=== PATIENT | female | born 1990 | race Caucasian/White ===

== ENCOUNTER 2016-05-19 22:34 | Observation (INO) | payer OTHER ==
[2016-05-19] MEDS ORDERED: ADENOSINE 6 MG/2 ML VIAL IVPUSH ONE (22:41)
--- NOTE | 2016-05-19 22:43 | PDOC ---
History of Present Illness - General History Source: Patient Exam Limitations: No Limitations <Amish Smith - Last Filed: 05/19/16 23:45> <Letty Parekh - Last Filed: 05/20/16 02:31> - General Stated Complaint: CHEST PAIN - History of Present Illness Initial Comments: 05/19/16 23:58 The patient is a 25 year old female brought via EMS, A0, with a significant past medical history of right arm cellulitis and asthma, who presents to the emergency department with palpitations, chest pain and headache onset today, fever, nausea, vomit or the past 2 weeks and an inability to urinate for the last couple of days. She notes that she was sitting in bed when the chest pain and palpitations started. She describes her chest pain as a pressure, ranging from mild to moderate, without radiation or modifying factors. She reports dehydration and notes that she recently has not been drinking enough liquids. She states that she has had multiple nosebleeds during this time frame. The patient denies shortness of breath, headache and dizziness. Denies chills, diarrhea and constipation. Denies dysuria, frequency and hematuria. Allergies: None Past surgical history: Left knee arthroscopic sx Social history: No alcohol, tobacco or drug use reported (Amish Smith) Past History <ArammarcusAmish - Last Filed: 05/19/16 23:45> - Past Medical History Anemia: Yes Asthma: No Cancer: No Cardiac Disorders: No CVA: No COPD: No CHF: No Dementia: No Diabetes: No GI Disorders: No Disorders: No HTN: No Hypercholesterolemia: No Liver Disease: No Seizures: No Thyroid Disease: No - Surgical History Orthopedic Surgery: Yes (Left kknee arthroscopic sx) - Reproductive History (#): 1 Para: 1 Spontaneous : 0 - Immunization History Immunization Up to Date: Yes - Psycho/Social/Smoking Cessation Hx Anxiety: No Suicidal Ideation: No Smoking Status: No Smoking History: Never smoked Have you smoked in the past 12 months: No Number of Cigarettes Smoked Daily: 0 Hx Alcohol Use: No Drug/Substance Use Hx: No Substance Use Type: None Hx Substance Use Treatment: No <Letty Parekh - Last Filed: 05/20/16 02:31> - Past Medical History Allergies/Adverse Reactions: Allergies Allergy/AdvReac Type Severity Reaction Status Date / Time No Known Allergies Allergy Verified 01/03/16 08:39 Home Medications: Ambulatory Orders Diltiazem Cd [Cardizem Cd -] 120 mg PO DAILY #14 cap.cd.24h 05/20/16 Cardiac Specific PMH - Complaint Specific PMHX Pacemaker: No <Letty Parekh - Last Filed: 05/20/16 02:31> Review of Systems - Review of Systems Able to Perform ROS?: Yes <Amish Smith - Last Filed: 05/19/16 23:45> <Letty Parekh - Last Filed: 05/20/16 02:31> - Review of Systems Comments:: 05/19/16 23:59 GENERAL/CONSTITUTIONAL: +Fever. No chills. No weakness. HEAD, EYES, EARS, NOSE AND THROAT: +Nose bleed. No change in vision. No ear pain or discharge. No sore throat. CARDIOVASCULAR: +Chest pain and palpitations. No shortness of breath RESPIRATORY: No cough, wheezing, or hemoptysis. GASTROINTESTINAL: +Nausea and vomiting. No diarrhea or constipation. GENITOURINARY: No dysuria, frequency, or change in urination. MUSCULOSKELETAL: No joint or muscle swelling or pain. No neck or back pain. SKIN: No rash NEUROLOGIC: +Headache. No vertigo, loss of consciousness, or change in strength/ sensation. ENDOCRINE: No increased thirst. No abnormal weight change HEMATOLOGIC/LYMPHATIC: No anemia, easy bleeding, or history of blood clots. ALLERGIC/IMMUNOLOGIC: No hives or skin allergy. (Amish Smith) *Physical Exam <Amish Smith - Last Filed: 05/19/16 23:45> <Letty Parekh - Last Filed: 05/20/16 02:31> - Vital Signs Last Vital Signs Temp Pulse Resp BP Pulse Ox 98.5 F 110 H 22 112/88 100 05/19/16 23:43 05/19/16 23:43 05/19/16 23:43 05/19/16 23:43 05/19/16 23:43 - Physical Exam Comments: 05/20/16 00:00 GENERAL: Awake, alert, and fully oriented, in no acute distress HEAD: No signs of trauma, normocephalic, atraumatic EYES: PERRLA, EOMI, sclera anicteric, conjunctiva clear ENT: Auricles normal inspection, hearing grossly normal, nares patent, oropharynx clear without exudates. Dry Mucosa. NECK: Normal ROM, supple, no lymphadenopathy, JVD, or masses LUNGS: No distress, speaks full sentences, clear to auscultation bilaterally HEART: Regular rate and rhythm, normal S1 and S2, no murmurs, rubs or gallops, peripheral pulses normal and equal bilaterally. ABDOMEN: Soft, nontender, normoactive bowel sounds. No guarding, no rebound. No masses EXTREMITIES: Normal inspection, Normal range of motion, no edema. No clubbing or cyanosis. NEUROLOGICAL: Cranial nerves II through XII grossly intact. Normal speech, normal gait, no focal sensorimotor deficits SKIN: Warm, Dry, normal turgor, no rashes or lesions noted. (Amish Smith ) ED Treatment Course - LABORATORY CBC & Chemistry Diagram: 05/19/16 23:00 05/19/16 23:00 <Amish Smith - Last Filed: 05/19/16 23:45> - LABORATORY CBC & Chemistry Diagram: 05/19/16 23:00 05/19/16 23:00 <Letty Parekh - Last Filed: 05/20/16 02:31> - ADDITIONAL ORDERS Additional order review: Laboratory Results 05/20/16 05/19/16 05/19/16 01:15 23:10 23:00 INR D-Dimer < 200 Sodium Potassium Chloride Carbon Dioxide Anion Gap BUN Creatinine Creat Clearance w eGFR Random Glucose Calcium Magnesium Total Bilirubin AST ALT Alkaline Phosphatase Creatine Kinase CK-MB (CK-2) Troponin I Total Protein Albumin Serum , Qual Negative Urine Color Colorless Urine Appearance Clear Urine pH 6.0 Ur Specific [place] 1.002 Urine Protein Negative Urine Glucose (UA) Negative Urine Ketones 1+ H Urine Blood 2+ H Urine Nitrite Negative Urine Bilirubin Negative Urine Urobilinogen Negative Ur Leukocyte Esterase Negative Urine RBC <1 Urine WBC <1 Ur Epithelial Cells Rare Urine Bacteria Rare 05/19/16 05/19/16 23:00 23:00 INR 1.24 H D-Dimer Sodium 141 Potassium 3.2 L D Chloride 102 Carbon Dioxide 26 Anion Gap 13 BUN 8 Creatinine 0.7 Creat Clearance w eGFR > 60 Random Glucose 78 Calcium 9.2 Magnesium 1.9 Total Bilirubin 0.7 D AST 21 D ALT 20 Alkaline Phosphatase 48 Creatine Kinase 153 CK-MB (CK-2) 1.753 Troponin I 0.03 Total Protein 7.4 Albumin 4.1 Serum , Qual Urine Color Urine Appearance Urine pH Ur Specific [place] Urine Protein Urine Glucose (UA) Urine Ketones Urine Blood Urine Nitrite Urine Bilirubin Urine Urobilinogen Ur Leukocyte Esterase Urine RBC Urine WBC Ur Epithelial Cells Urine Bacteria 05/20/16 00:19 Influenza Types A,B Antigen (GRACIA) - Final Nasopharyngeal Swab - Final 05/19/16 23:00 RBC 4.77 MCV 81.8 MCHC 34.2 RDW 12.7 MPV 9.5 Neutrophils % 79.0 Lymphocytes % 11.3 D Monocytes % 8.0 Eosinophils % 0.9 Basophils % 0.8 D - RADIOLOGY Radiology Studies Ordered: Category Date Time Status CHEST PA & LAT [RAD] Stat Radiology 05/20/16 00:30 Taken - Medications Given in the ED: ED Medications Discontinued Medications Generic Name Dose Route Start Last Admin Trade Name Freq PRN Reason Stop Dose Admin Acetaminophen 975 mg 05/19/16 23:30 05/19/16 23:49 Tylenol - PO 05/19/16 23:31 975 mg ONCE ONE Administration Sodium Chloride 1,000 mls @ 1,000 mls/hr 05/19/16 23:17 05/19/16 23:21 Normal Saline - IV 05/20/16 00:16 1,000 mls/hr ASDIR STA Administration Sodium Chloride 1,000 mls @ 1,000 mls/hr 05/20/16 00:16 05/20/16 00:21 Normal Saline - IV 05/20/16 01:15 1,000 mls/hr ASDIR STA Administration Magnesium Sulfate 2 gm 05/20/16 01:01 05/20/16 01:34 Magnesium Sulfate IVPB 05/20/16 01:02 2 gm ONCE ONE Administration Ondansetron HCl 4 mg 05/19/16 23:18 05/19/16 23:23 Zofran Injection IVPUSH 05/19/16 23:19 4 mg ONCE ONE Administration Potassium Chloride 40 meq 05/20/16 00:02 05/20/16 00:28 K-Dur - PO 05/20/16 00:03 40 meq ONCE ONE Administration Medical Decision Making <Amish Smith - Last Filed: 05/19/16 23:45> <Letty Parekh - Last Filed: 05/20/16 02:31> - Medical Decision Making 05/20/16 01:15 25 yo female was resting tonight in bed when she suddenly felt her heart start to race -=she states she has had a viral like illness for past 10 days with nasal congestion,nausea ,fever and vomiting and generally not feeling well PMH 911 was called and she was found to be in SVT and she received adenosine and converted to sinus rhythm -elg in ER was tachy@ 115 INFLUENZA A and B NEGATIVE -no leukocytosis -cardiac enzyme is negative -d dimer is negative -negative test cxr napd -found to have k=3.1 and received potassium supplementation case dicussed w cardiology, Dr Moris Velázquez and he recommended that she be started on cardizem cd 120mg and be seen in the office this week 05/20/16 02:19 (Letty Parekh) *DC/Admit/Observation/Transfer <Amish Smith - Last Filed: 05/19/16 23:45> <Letty Parekh - Last Filed: 05/20/16 02:31> Diagnosis at time of Disposition: SVT (supraventricular tachycardia), Nasal congestion - Discharge Dispostion Condition at time of disposition: Stable - Prescriptions Prescriptions: Diltiazem Cd [Cardizem Cd -] 120 mg PO DAILY #14 cap.cd.24h - Referrals Referrals: Gloria Ren MD [Primary Care Provider] - Moris eVlázquez MD [Staff Physician] - - Patient Instructions Printed Discharge Instructions: DI for Paroxysmal Supraventricular Tachycardia , DI for Atypical Chest Pain Additional Instructions: PLEASE FOLLOW UP WITH CARDIOLOGY THIS WEEK DIAGNOSTIC ASSISTANT [facility] RETURN TO THE EMERGENCY DEPARTMENT FOR ANY WORSENING SYMPTOMS - Attestations Scribe Attestion: 05/20/16 00:00 Documentation prepared by mAish Smith, acting as medical certification specialist for Letty Parekh MD. (Amish Smith)
[2016-05-19 22:50] VITALS: BMI 24.4
[2016-05-19 23:14] LABS: BASOPHIL 0.8 % (0-2.0); EOSINOPHIL 0.9 % (0-4.5); MCHC 34.2 g/dl (32.0-36.0); MEAN CELL VOLUME 81.8 fl (80-96); MEAN PLT VOLUME 9.5 fl (7.5-11.1); PLATELET COUNT 264 K/MM3 (134-434); RDW 12.7 % (11.6-15.6); WHITE BLOOD COUNT 10.3 K/mm3 (4.0-10.0)
[2016-05-19] MEDS ORDERED: SODIUM CHLORIDE 1,000 ML IV STA (23:17)
[2016-05-19] MEDS ORDERED: ONDANSETRON 4 MG/2 ML VIAL IVPUSH ONE (23:18)
[2016-05-19] MEDS ORDERED: ONDANSETRON 4 MG/2 ML VIAL ONE (23:23)
[2016-05-19] MEDS ORDERED: ACETAMINOPHEN 500 MG TABLET (FP) PO ONE (23:30)
[2016-05-19 23:38] LABS: INR 1.24 (0.82-1.09); PROTHROMBIN TIME (PATIENT) 13.7 SEC (9.98-11.88)
[2016-05-19] MEDS ORDERED: ACETAMINOPHEN 325 MG TABLET (FP) ONE (23:47)
[2016-05-19 23:50] LABS: ALBUMIN 4.1 g/dl (3.4-5.0); ALK PHOS 48 U/L (45-117); ANION GAP 13 (8-16); BILIRUBIN,TOTAL 0.7 mg/dL (0.2-1.0); CALCIUM 9.2 mg/dL (8.5-10.1); CO2 26 mmol/L (21-32); CREATININE 0.7 mg/dL (0.55-1.02); GLUCOSE,RANDOM 78 mg/dL (74-106); MAGNESIUM 1.9 mg/dL (1.8-2.4); SGOT/AST 21 U/L (15-37); SGPT/ALT 20 U/L (12-78); TOT PROT 7.4 g/dl (6.4-8.2)
[2016-05-19 23:52] LABS: TROPONIN I 0.03 ng/ml (0.00-0.05)
[2016-05-20] MEDS ORDERED: POTASSIUM CHLORIDE TABS 20 MEQ TABLET.ER (FP) PO ONE ×2 (00:02→04:34)
[2016-05-20] MEDS ORDERED: ONDANSETRON 4 MG/2 ML VIAL ONE (00:09)
[2016-05-20] MEDS ORDERED: SODIUM CHLORIDE 1,000 ML IV STA (00:16)
[2016-05-20] MEDS ORDERED: POTASSIUM CHLORIDE 40 MEQ/30 ML UNIT DOSE CUP ONE (00:22)
[2016-05-20] MEDS ORDERED: MAGNESIUM SULF 50% (8.12 MEQ/2 ML-1 GM VIAL) IVPB ONE (01:01)
[2016-05-20] MEDS ORDERED: MAGNESIUM SULF 50% (8.12 MEQ/2 ML-1 GM VIAL) ONE (01:19)
[2016-05-20 01:20] LABS: URINE APPEARANCE CLEAR; URINE BILIRUBIN NEGATIVE (NEGATIVE); URINE COLOR COLORLESS; URINE GLUCOSE (UA) NEGATIVE (NEGATIVE); URINE KETONE 1+ (NEGATIVE); URINE LEUK ESTERASE NEGATIVE (NEGATIVE); URINE NITRITE NEGATIVE (NEGATIVE); URINE PROTEIN NEGATIVE (NEGATIVE); URINE UROBILINOGEN NEGATIVE E.U./dl (0.2-1.0)
[2016-05-20 01:21] LABS: URINE BLOOD 2+ (NEGATIVE)
[2016-05-20 01:22] LABS: URINE BACTERIA RARE /hpf (NONE SEEN); URINE RBC <1 /hpf (0-3); URINE WBC <1 /hpf (3-5)
[2016-05-20] MEDS ORDERED: ASPIRIN 325 MG TABLET PO ONE (02:23)
[2016-05-20] MEDS ORDERED: ASPIRIN 81 MG CHEWABLE TABLETS PO ONE (02:29)
[2016-05-20] MEDS ORDERED: ACETAMINOPHEN 1000 MG/100 ML VIAL (NON FORMULARY) IVPB ONE ×2 (02:29→20:50)
[2016-05-20] MEDS ORDERED: ASPIRIN 81 MG CHEWABLE TABLETS ONE (02:31)
[2016-05-20] MEDS ORDERED: ACETAMINOPHEN INJECTION 100 ML IVPB ONE (02:35)
[2016-05-20 03:34] LABS: TROPONIN I 0.11 ng/ml (0.00-0.05)
--- NOTE | 2016-05-20 03:45 | PN ---
<Suraj Sosa - Last Filed: 05/20/16 03:45> Teaching Attending Note Name of Resident: Riley Lea ATTENDING PHYSICIAN STATEMENT I saw and evaluated the patient. I reviewed the resident's note and discussed the case with the resident. I agree with the resident's findings and plan as documented. SUBJECTIVE: OBJECTIVE: ASSESSMENT AND PLAN: <SantosLito - Last Filed: 05/20/16 04:46> Teaching Attending Note ATTENDING PHYSICIAN STATEMENT I saw and evaluated the patient. I reviewed the resident's note and discussed the case with the resident. I agree with the resident's findings and plan as documented. SUBJECTIVE: 25 year old female with no significant past medical history who presented to the emergency department, via EMS, with palpitations and chest pain onset late yesterday, fever, nausea, vomit for the past 2 weeks and an inability to urinate for the last couple of days. She reported that she had just gotten out of the shower when her chest pain and palpitations started. She described her chest pain as a pressure located substernally, non-radiation, and constant in nature. The patient reported that her fever has fluctuated but was Tmax 103.6 yesterday. Patients heart rate upon EMS arrival was found to be 180-200 as SVT noted on rhythm strip (strip not in ED) was given adenosine 6 en route to ED. Upon arrival patient was on sinus tachycardia rhythm. The patient denied shortness of breath, headache and dizziness. Denied chills, diarrhea and constipation. Denied dysuria, frequency and hematuria. Denied any sick contacts. OBJECTIVE: Vital Signs: Last Vital Signs Temp Pulse Resp BP Pulse Ox 98.5 F 110 H 22 112/88 100 05/19/16 23:43 05/19/16 23:43 05/19/16 23:43 05/19/16 23:43 05/19/16 23:43 Physical Exam: GEN: NAD HEENT: NCAT, PERRL CARD: RRR, S1 S2 RESP: CTAB ABD: NT, BWS x4 EXT: - CCE Labs: CBCD WBC 10.3 K/mm3 (4.0-10.0) H 05/19/16 23:00 RBC 4.77 M/mm3 (3.60-5.2) 05/19/16 23:00 Hgb 13.3 GM/dL (10.7-15.3) 05/19/16 23:00 Hct 39.0 % (32.4-45.2) 05/19/16 23:00 MCV 81.8 fl (80-96) 05/19/16 23:00 MCHC 34.2 g/dl (32.0-36.0) 05/19/16 23:00 RDW 12.7 % (11.6-15.6) 05/19/16 23:00 Plt Count 264 K/MM3 (134-434) D 05/19/16 23:00 MPV 9.5 fl (7.5-11.1) 05/19/16 23:00 CMP Sodium 141 mmol/L (136-145) 05/19/16:00 Potassium 3.2 mmol/L (3.5-5.1) L D 05/19/16 23:00 Chloride 102 mmol/L (98-107) 05/19/16 23:00 Carbon Dioxide 26 mmol/L (21-32) 05/19/16 23:00 Anion Gap 13 (8-16) 05/19/16 23:00 BUN 8 mg/dL (7-18) 05/19/16 23:00 Creatinine 0.7 mg/dL (0.55-1.02) 05/19/16 23:00 Creat Clearance w eGFR > 60 (>60) 05/19/16 23:00 Calcium 9.2 mg/dL (8.5-10.1) 05/19/16 23:00 Total Bilirubin 0.7 mg/dL (0.2-1.0) D 05/19/16 23:00 AST 21 U/L (15-37) D 05/19/16 23:00 ALT 20 U/L (12-78) 05/19/16 23:00 Alkaline Phosphatase 48 U/L (45-117) 05/19/16 23:00 Total Protein 7.4 g/dl (6.4-8.2) 05/19/16 23:00 Albumin 4.1 g/dl (3.4-5.0) 05/19/16 23:00 Imaging: CXR- No acute process. ECG- Sinus tachycardia at 115. QTC normal. ASSESSMENT AND PLAN: Patient is a 25 year old female with no significant past medical history who presents with chest pain was found to be in SVT with positive troponin. 1 Chest Pain- most likely due to SVT -DDX-most likely due to SVT/myocarditis -Trend troponins -Atypical less likely ACS -Check lipid panel A1C 2. SVT -Cardiology consult -Continue cardizem - Repeat electrolytes -Check potassium and magnesium -Keep potassium >4 and magnesium >2 -ECHO complete 3. Increased troponin- most likely due to SVT -Trend troponins -s/p ASA in ED Admit to observation tele. Documentation prepared by Lito Graham, acting as medical lead for Dr. Ian MD.
--- NOTE | 2016-05-20 03:48 | PDOC ---
*Physical Exam - Vital Signs Last Vital Signs Temp Pulse Resp BP Pulse Ox 98.5 F 110 H 22 112/88 100 05/19/16 23:43 05/19/16 23:43 05/19/16 23:43 05/19/16 23:43 05/19/16 23:43 ED Treatment Course - LABORATORY CBC & Chemistry Diagram: 05/19/16 23:00 05/19/16 23:00 - ADDITIONAL ORDERS Additional order review: Laboratory Results 05/20/16 05/20/16 05/19/16 03:00 01:15 23:10 INR D-Dimer Sodium Potassium Chloride Carbon Dioxide Anion Gap BUN Creatinine Creat Clearance w eGFR Random Glucose Calcium Magnesium Total Bilirubin AST ALT Alkaline Phosphatase Creatine Kinase 109 CK-MB (CK-2) Troponin I 0.11 H Total Protein Albumin TSH Serum , Qual Negative Urine Color Colorless Urine Appearance Clear Urine pH 6.0 Ur Specific [place] 1.002 Urine Protein Negative Urine Glucose (UA) Negative Urine Ketones 1+ H Urine Blood 2+ H Urine Nitrite Negative Urine Bilirubin Negative Urine Urobilinogen Negative Ur Leukocyte Esterase Negative Urine RBC <1 Urine WBC <1 Ur Epithelial Cells Rare Urine Bacteria Rare 05/19/16 05/19/16 05/19/16 23:00 23:00 23:00 INR 1.24 H D-Dimer < 200 Sodium 141 Potassium 3.2 L D Chloride 102 Carbon Dioxide 26 Anion Gap 13 BUN 8 Creatinine 0.7 Creat Clearance w eGFR > 60 Random Glucose 78 Calcium 9.2 Magnesium 1.9 Total Bilirubin 0.7 D AST 21 D ALT 20 Alkaline Phosphatase 48 Creatine Kinase 153 CK-MB (CK-2) 1.753 Troponin I 0.03 Total Protein 7.4 Albumin 4.1 TSH Serum , Qual Urine Color Urine Appearance Urine pH Ur Specific [place] Urine Protein Urine Glucose (UA) Urine Ketones Urine Blood Urine Nitrite Urine Bilirubin Urine Urobilinogen Ur Leukocyte Esterase Urine RBC Urine WBC Ur Epithelial Cells Urine Bacteria 05/19/16 22:30 INR D-Dimer Sodium Potassium Chloride Carbon Dioxide Anion Gap BUN Creatinine Creat Clearance w eGFR Random Glucose Calcium Magnesium Total Bilirubin AST ALT Alkaline Phosphatase Creatine Kinase CK-MB (CK-2) Troponin I Total Protein Albumin TSH 0.36 Serum , Qual Urine Color Urine Appearance Urine pH Ur Specific [place] Urine Protein Urine Glucose (UA) Urine Ketones Urine Blood Urine Nitrite Urine Bilirubin Urine Urobilinogen Ur Leukocyte Esterase Urine RBC Urine WBC Ur Epithelial Cells Urine Bacteria 05/20/16 00:19 Influenza Types A,B Antigen (GRACIA) - Final Nasopharyngeal Swab - Final 05/19/16 23:00 RBC 4.77 MCV 81.8 MCHC 34.2 RDW 12.7 MPV 9.5 Neutrophils % 79.0 Lymphocytes % 11.3 D Monocytes % 8.0 Eosinophils % 0.9 Basophils % 0.8 D - Medications Given in the ED: ED Medications Discontinued Medications Generic Name Dose Route Start Last Admin Trade Name Fredonal PRN Reason Stop Dose Admin Acetaminophen 975 mg 05/19/16 23:30 05/19/16 23:49 Tylenol - PO 05/19/16 23:31 975 mg ONCE ONE Administration Acetaminophen 1,000 mg 05/20/16 02:29 05/20/16 03:00 Ofirmev Injection - IVPB 05/20/16 02:30 1,000 mg ONCE ONE Administration Aspirin 650 mg 05/20/16 02:23 05/20/16 02:35 Asa - PO 05/20/16 02:24 Not Given ONCE ONE Aspirin 162 mg 05/20/16 02:29 05/20/16 02:36 Asa - PO 05/20/16 02:30 162 mg ONCE ONE Administration Diltiazem HCl 120 mg 05/20/16 02:18 05/20/16 02:36 Cardizem Cd - PO 05/20/16 02:19 120 mg ONCE ONE Administration Sodium Chloride 1,000 mls @ 1,000 mls/hr 05/19/16 23:17 05/19/16 23:21 Normal Saline - IV 05/20/16 00:16 1,000 mls/hr ASDIR STA Administration Sodium Chloride 1,000 mls @ 1,000 mls/hr 05/20/16 00:16 05/20/16 00:21 Normal Saline - IV 05/20/16 01:15 1,000 mls/hr ASDIR STA Administration Magnesium Sulfate 2 gm 05/20/16 01:01 05/20/16 01:34 Magnesium Sulfate IVPB 05/20/16 01:02 2 gm ONCE ONE Administration Ondansetron HCl 4 mg 05/19/16 23:18 05/19/16 23:23 Zofran Injection IVPUSH 05/19/16 23:19 4 mg ONCE ONE Administration Potassium Chloride 40 meq 05/20/16 00:02 05/20/16 00:28 K-Dur - PO 05/20/16 00:03 40 meq ONCE ONE Administration Progress Note - Progress Note Progress Note: svt w/ + trops no hx admitto tely for obs and card consult *DC/Admit/Observation/Transfer Diagnosis at time of Disposition: SVT (supraventricular tachycardia), Nasal congestion - Discharge Dispostion Condition at time of disposition: Stable Admit: Yes - Prescriptions Prescriptions: Diltiazem Cd [Cardizem Cd -] 120 mg PO DAILY #14 cap.cd.24h - Referrals Referrals: Moris Velázquez MD [Staff Physician] - Gloria Ren MD [Primary Care Provider] - - Patient Instructions Printed Discharge Instructions: DI for Atypical Chest Pain, DI for Paroxysmal Supraventricular Tachycardia Additional Instructions: PLEASE FOLLOW UP WITH CARDIOLOGY THIS WEEK COMMERCIAL LOAN OFFICER YOUR PRESCRIPTION AT [facility] RETURN TO THE EMERGENCY DEPARTMENT FOR ANY WORSENING SYMPTOMS - Post Discharge Activity
--- NOTE | 2016-05-20 03:54 | HP ---
CHIEF COMPLAINT: chest pain PCP: Gloria Ren MD HISTORY OF PRESENT ILLNESS: 25 yo F with no significant past medical history presents to ED via EMS for palpitations and chest pain. She describes a constant 10/10 non-radiating substernal pressure like pain that started after she took a shower. She states that it started with palpitations and then progressed to pain. She tried drinking water and lying down but pain persisted for approx. 25 min until EMS arrived. Denies aggravating of alleviating factors. Pain and palpitations were accompanied by shaking and SOB. She mentions that she has been sick with flu- like symptoms for about a week with fevers ,vomiting, nose bleeds and poor oral intake. She mentions dehydration and decreased urine output. Denies similar events in past. She has been hospitalized in past for upper ext. cellulitis ( ). Denies SOB, recent travel, or sick contacts. ER course was notable for: (1) EKG initially showed SVT- recieved adenosine 6mg by EMS and converted to sinus,in ED was tach@115 and given cardizem 120mg PO (2) Elevated troponins- first set WNL , second set showed mild elevation 0.11 (3) D-dimer(-) and test (-) (4) Hypokalemia- given PO K+ (5) Influenz A-B (-) Recent Travel: Denies PAST MEDICAL HISTORY: Right Arm Cellulits. PAST SURGICAL HISTORY: Left knee arthroscopic sx Social History: Smoking: no Alcohol: denies Drugs: denies Family History: No history of cardiac disease. Allergies No Known Allergies Allergy (Verified 01/03/16 08:39) HOME MEDICATIONS: Home Medications Medication Instructions Recorded Diltiazem Cd [Cardizem Cd -] 120 mg PO DAILY #14 cap.cd.24h 05/20/16 REVIEW OF SYSTEMS CONSTITUTIONAL: (+)fever Absent: , chills, diaphoresis, generalized weakness, malaise, loss of appetite , weight change HEENT: +nose bleeds. Absent: rhinorrhea, nasal congestion, throat pain, throat swelling, difficulty swallowing, mouth swelling, ear pain, eye pain, visual changes CARDIOVASCULAR: (+)chest pain,palpitations, Absent: , syncope, irregular heart rate, lightheadedness, peripheral edema RESPIRATORY: Absent: cough, shortness of breath, dyspnea with exertion, orthopnea, wheezing, stridor, hemoptysis GASTROINTESTINAL:(+)nausea, vomiting, Absent: abdominal pain, abdominal distension, diarrhea, constipation, melena, hematochezia GENITOURINARY: Absent: dysuria, frequency, urgency, hesitancy, hematuria, flank pain, genital pain MUSCULOSKELETAL: Absent: myalgia, arthralgia, joint swelling, back pain, neck pain SKIN: Absent: rash, itching, pallor HEMATOLOGIC/IMMUNOLOGIC: Absent: easy bleeding, easy bruising, lymphadenopathy, frequent infections ENDOCRINE: Absent: unexplained weight gain, unexplained weight loss, heat intolerance, cold intolerance NEUROLOGIC: (+)headache Absent: , focal weakness or paresthesias, dizziness, unsteady gait, seizure, mental status changes, bladder or bowel incontinence PSYCHIATRIC: Absent: anxiety, depression, suicidal or homicidal ideation, hallucinations. PHYSICAL EXAMINATION Vital Signs - 24 hr 05/19/16 05/19/16 22:45 23:43 Temperature 97.8 F 98.5 F Pulse Rate 119 H Pulse Rate [ 110 H Right Radial] Respiratory 22 22 Rate Blood Pressure 106/81 Blood Pressure 112/88 [Right Arm] O2 Sat by Pulse 97 100 Oximetry (%) GENERAL: Awake, alert, and fully oriented, in mild distress. HEAD: Normal with no signs of trauma. EYES: Pupils equal, round and reactive to light, extraocular movements intact, sclera anicteric, conjunctiva clear. No lid lag. EARS, NOSE, THROAT: Ears normal, nares patent, oropharynx clear without exudates. dry mucous membranes. NECK: Normal range of motion, supple without lymphadenopathy, JVD, or masses. LUNGS: Breath sounds equal, clear to auscultation bilaterally. No wheezes, and no crackles. No accessory muscle use. HEART: Regular rate and rhythm, normal S1 and S2 without murmur, rub or gallop. ABDOMEN: Soft, nontender, not distended, normoactive bowel sounds, no guarding, no rebound, no masses. No hepatomegaly or splenomegaly. MUSCULOSKELETAL: Normal range of motion at all joints. No bony deformities or tenderness. UPPER EXTREMITIES: 2+ pulses, warm, well-perfused. No cyanosis. No clubbing. No peripheral edema. LOWER EXTREMITIES: 2+ pulses, warm, well-perfused. No calf tenderness. No peripheral edema. NEUROLOGICAL: Cranial nerves II-XII intact. Normal speech. gait not observed. PSYCHIATRIC: Cooperative. Good eye contact. Appropriate mood and affect. SKIN: Warm, dry, normal turgor, no rashes or lesions noted. Laboratory Results - last 24 hr 05/19/16 05/19/16 05/19/16 22:30 23:00 23:00 WBC 10.3 H RBC 4.77 Hgb 13.3 Hct 39.0 MCV 81.8 MCHC 34.2 RDW 12.7 Plt Count 264 D MPV 9.5 Neutrophils % 79.0 Lymphocytes % 11.3 D Monocytes % 8.0 Eosinophils % 0.9 Basophils % 0.8 D INR 1.24 H D-Dimer Sodium Potassium Chloride Carbon Dioxide Anion Gap BUN Creatinine Creat Clearance w eGFR Random Glucose Calcium Magnesium Total Bilirubin AST ALT Alkaline Phosphatase Creatine Kinase CK-MB (CK-2) Troponin I Total Protein Albumin TSH 0.36 Serum , Qual Urine Color Urine Appearance Urine pH Ur Specific [place] Urine Protein Urine Glucose (UA) Urine Ketones Urine Blood Urine Nitrite Urine Bilirubin Urine Urobilinogen Ur Leukocyte Esterase Urine RBC Urine WBC Ur Epithelial Cells Urine Bacteria 05/19/16 05/19/16 05/19/16 23:00 23:00 23:10 WBC RBC Hgb Hct MCV MCHC RDW Plt Count MPV Neutrophils % Lymphocytes % Monocytes % Eosinophils % Basophils % INR D-Dimer < 200 Sodium 141 Potassium 3.2 L D Chloride 102 Carbon Dioxide 26 Anion Gap 13 BUN 8 Creatinine 0.7 Creat Clearance w eGFR > 60 Random Glucose 78 Calcium 9.2 Magnesium 1.9 Total Bilirubin 0.7 D AST 21 D ALT 20 Alkaline Phosphatase 48 Creatine Kinase 153 CK-MB (CK-2) 1.753 Troponin I 0.03 Total Protein 7.4 Albumin 4.1 TSH Serum , Qual Negative Urine Color Urine Appearance Urine pH Ur Specific [place] Urine Protein Urine Glucose (UA) Urine Ketones Urine Blood Urine Nitrite Urine Bilirubin Urine Urobilinogen Ur Leukocyte Esterase Urine RBC Urine WBC Ur Epithelial Cells Urine Bacteria 05/20/16 05/20/16 01:15 03:00 WBC RBC Hgb Hct MCV MCHC RDW Plt Count MPV Neutrophils % Lymphocytes % Monocytes % Eosinophils % Basophils % INR D-Dimer Sodium Potassium Chloride Carbon Dioxide Anion Gap BUN Creatinine Creat Clearance w eGFR Random Glucose Calcium Magnesium Total Bilirubin AST ALT Alkaline Phosphatase Creatine Kinase 109 CK-MB (CK-2) Troponin I 0.11 H Total Protein Albumin TSH Serum , Qual Urine Color Colorless Urine Appearance Clear Urine pH 6.0 Ur Specific [place] 1.002 Urine Protein Negative Urine Glucose (UA) Negative Urine Ketones 1+ H Urine Blood 2+ H Urine Nitrite Negative Urine Bilirubin Negative Urine Urobilinogen Negative Ur Leukocyte Esterase Negative Urine RBC <1 Urine WBC <1 Ur Epithelial Cells Rare Urine Bacteria Rare Imaging: CXR- No acute process. ECG- Sinus tachycardia at 115. QTC normal. ASSESSMENT/PLAN: 25 yo F with no sign. PMHx placed on tele obs for chest pain and SVT. Problem List - Problem (1) Chest pain Assessment/Plan: * most like 2/2 SVT vs. myocarditis(given recent viral illness) * trend troponin's * HEART score 1 * ordered Lipid panel and A1C (2) SVT (supraventricular tachycardia) Assessment/Plan: * Cardiology consulted Dr. Velázquez * continuous cardiac cath lab manager * Continue cardizem 120mg PO * repeat EKG in AM * Repeat CMP in AM * maintain potassium >4 and magnesium >2 * Echo pending (3) Elevated troponin I level Assessment/Plan: * ASA given in ED * trend trops with AM labs. (4) Hypokalemia Assessment/Plan: * replete with PO potassium * repeat labs in AM Visit type - Emergency Visit Emergency Visit: Yes Care time: The patient presented to the Emergency Department on the above date and was hospitalized for further evaluation of their emergent condition. - New Patient This patient is new to me today: Yes Date on this admission: 05/20/16 - Critical Care Critical Care patient: No Heart Score/ECG Review - History History: Slightly suspicious - Electrocardiogram EKG: Normal (sinus tach) - Age Age: </= 45 - Risk Factors Based on the list above the patient has:: No risk factors known - Troponin Troponin: 1-3x normal limit - Score Heart Score - Total: 1
[2016-05-20] MEDS ORDERED: IBUPROFEN 600 MG TABLET (FP) PO PRN (04:26)
[2016-05-20] MEDS ORDERED: ONDANSETRON 4 MG/2 ML VIAL IVPB PRN (04:26)
[2016-05-20] MEDS: SODIUM CHLORIDE 1,000 ML IV SCH (06:05)
[2016-05-20 08:17] LABS: BASOPHIL 0.6 % (0-2.0); EOSINOPHIL 1.3 % (0-4.5); MCH 28.9 pg (25.7-33.7); MCHC 34.8 g/dl (32.0-36.0); MEAN CELL VOLUME 83.1 fl (80-96); PLATELET COUNT 189 K/MM3 (134-434); RDW 12.5 % (11.6-15.6); WHITE BLOOD COUNT 6.2 K/mm3 (4.0-10.0)
--- NOTE | 2016-05-20 08:49 | PN ---
Physical Exam: SUBJECTIVE: Patient seen and examined c/o nausea, vomiting, sinus congestion, poor po intake for past 3 weeks. vomiting at times has some scant blood missed with mucus, is not related to type of food or meal time. also c/o chest pain that is substernal, crushing in character, nonradiating, 9.5 /10, continuous, does not change with position and is not worse with deep inspiration. also c/o having difficulty urinating for the past 3 days, denies seeing blood in urine. OBJECTIVE: Vital Signs Period Temp Pulse Resp BP Sys/Teran Pulse Ox Last 24 Hr 97.7 F-98.2 F 76-92 20-20 102-113/76-82 96-100 GENERAL: The patient is awake, alert, and fully oriented, in no acute distress. HEAD: Normal with no signs of trauma. ttp b/l temporal areas. maxillary and frontal sinus tenderness. EYES: PERRL, extraocular movements intact, sclera anicteric, conjunctiva clear. No ptosis. ENT: Ears normal, nares patent, oropharynx clear without exudates or erythema, moist mucous membranes. CHEST: ttp over mid sternum NECK: Trachea midline, full range of motion, supple. LUNGS: Breath sounds equal, clear to auscultation bilaterally, no wheezes, no crackles, no accessory muscle use. HEART: regular rate and rhythm, S1, S2 without murmur, rub or gallop. ABDOMEN: Soft, mild tenderness in RUQ, nondistended, normoactive bowel sounds, no guarding, no rebound, negative for: psoas's, rovsing's, obturator sign, murphys. EXTREMITIES: 2+ pulses, warm, well-perfused, no edema. NEUROLOGICAL: Cranial nerves II through XII grossly intact. Normal speech PSYCH: Normal mood, normal affect. SKIN: Warm, dry, normal turgor, no rashes or lesions noted Laboratory Results - last 24 hr 05/20/16 05/20/16 05:45 05:45 WBC 6.2 D RBC 3.75 D Hgb 10.8 D Hct 31.1 L D MCV 83.1 MCHC 34.8 RDW 12.5 Plt Count 189 D MPV 10.0 Neutrophils % 63.0 D Lymphocytes % 25.8 D Monocytes % 9.3 Eosinophils % 1.3 Basophils % 0.6 Triglycerides Cancelled Cholesterol Cancelled Total LDL Cholesterol Cancelled HDL Cholesterol Cancelled Active Medications Generic Name Dose Route Start Last Admin Trade Name Benny PRN Reason Stop Dose Admin Sodium Chloride 1,000 mls @ 100 mls/hr 05/20/16 04:30 05/20/16 06:05 Normal Saline - IV 100 mls/hr ASDIR JENNIFER Administration Ondansetron HCl 4 mg 05/20/16 04:26 Zofran Injection IVPB Q6H PRN NAUSEA ASSESSMENT/PLAN: 25 year old woman who presents with atypical chest pain was found to have sinus tachycardia in ED, report of SVT in EMS that was treated with and improved with adenosine 6mg, also complains of vomiting, nausea, abdominal pain, sinus congestion for past 3 weeks. - patient is not the best historian and history changes slightly from each provider and she has many non-specific complaints. - BUN, electrolytes do not show signs of having constant vomiting or poor po intake #Atypical chest Pain - unclear in etiology, cardiomyopathy vs musculoskeletal - troponin trend nonspecific, likely from demand ischemia vs leakage from tachycardia - since the pain is reproducible, echo is normal, lipid panel wnl and HBA1c 4.4 , low suspicion for ACS - will treat musculoskeletal pain with naproxsyn 250mg po q12 for pain, will avoid morphine, narcotics and IV pain medications in this patient - urine toxicology to r/o drug use - ESR is low, unlike to be inflammatory cause #Sinus tachycardia - no events recorded on monitor, lastest EKG NSR without any axis deviation or acute ischemic changes - ED strip with SVT, HR 160's - toprol 25mg po daily - cardiology Dr. Cunningham - continue fluids NS @100mls/hr #Migraines - fiorecet po #Sinusitis - will treat with Augmentin 875 BID for 5 days. #Abdominal pain - r/o gallstone as cause, NPO at midnight for ultrasound in the morning #Hematuria - past 3 u/a's have 3+ or 2+ blood in urine, patient is not menstruating - renal ultrasound for evaluation DVT: low risk, encourage ambulation Diet: regular diet Visit type - Emergency Visit Emergency Visit: No - New Patient This patient is new to me today: Yes Date on this admission: 05/20/16 - Critical Care Critical Care patient: No - Discharge Referral Referred to [facility] Med P.C.: No
[2016-05-20 08:52] LABS: ALBUMIN 3.1 g/dl (3.4-5.0); ALK PHOS 39 U/L (45-117); ANION GAP 8 (8-16); BILIRUBIN,TOTAL 0.4 mg/dL (0.2-1.0); CALCIUM 7.5 mg/dL (8.5-10.1); CHOLESTEROL 117 mg/dL (50-200); CO2 24 mmol/L (21-32); CREATININE 0.5 mg/dL (0.55-1.02); GLUCOSE,RANDOM 79 mg/dL (74-106); LDL CHOLESTEROL (ONLY SJRH) 67 mg/dL (5-100); MAGNESIUM 2.4 mg/dL (1.8-2.4); PHOSPHOROUS 2.8 mg/dL (2.5-4.9); SGOT/AST 12 U/L (15-37); SGPT/ALT 16 U/L (12-78); TOT PROT 5.5 g/dl (6.4-8.2); TROPONIN I 0.09 ng/ml (0.00-0.05)
[2016-05-20] MEDS ORDERED: POTASSIUM CHLORIDE TABS 20 MEQ TABLET.ER (FP) PO SCH (10:00)
--- NOTE | 2016-05-20 10:23 | EKG ---
Test Reason : Blood Pressure : / mmHG Vent. Rate : 085 BPM Atrial Rate : 085 BPM P-R Int : 122 ms QRS Dur : 076 ms QT Int : 392 ms P-R-T Axes : 026 064 035 degrees QTc Int : 466 ms NORMAL SINUS RHYTHM NORMAL ECG WHEN COMPARED WITH ECG OF 19-MAY-2016 22:46, NO SIGNIFICANT CHANGE WAS FOUND Confirmed by RAMSEY PANDA MD ([id number]) on 05/20/2016 10:22:39 AM Referred By: Antonia MARX Confirmed By:RAMSEY PANDA MD
--- NOTE | 2016-05-20 10:27 | EKG ---
Test Reason : Blood Pressure : / mmHG Vent. Rate : 115 BPM Atrial Rate : 115 BPM P-R Int : 118 ms QRS Dur : 078 ms QT Int : 336 ms P-R-T Axes : 056 066 018 degrees QTc Int : 464 ms SINUS TACHYCARDIA OTHERWISE NORMAL ECG NO PREVIOUS ECGS AVAILABLE Confirmed by RAMSEY PANDA MD ([id number]) on 05/20/2016 10:26:30 AM Referred By: Confirmed By:RAMSEY PANDA MD
--- NOTE | 2016-05-20 11:31 | PN ---
Progress Note (short form) - Note Progress Note: Chief Complaint: Events noted, notes reviewed chest pain syndrome, palpitations , nausea and vomiting, evaluation of SVT (No EKG or rhythm strip in chart) History of Present Illness: Seen and examined on telemetry. Full consult dictated Troponin I elevation is non specific, and there is clinical indications for ACS Echocardiography revealed abnormal septal motion, with normal LV systolic function, redundant anterior mitral valve leaflet, mild MR and trace to mild TR , no pericardial effusion Medications: Current Medications Sodium Chloride (Normal Saline -) 1,000 mls @ 100 mls/hr IV ASDIR JENNIFER Last Admin: 05/20/16 06:05 Dose: 100 mls/hr Ibuprofen (Motrin -) 600 mg PO Q6H PRN PRN Reason: FEVER Last Admin: 05/20/16 06:04 Dose: 600 mg Ondansetron HCl (Zofran Injection) 4 mg IVPB Q6H PRN PRN Reason: NAUSEA Review of Systems - Review of Systems Constitutional: reports: Chills, Fever Cardiovascular: As noted above Respiratory: denies: Cough or Sputum Production Gastrointestinal: reports: Nausea, Vomiting, and RUQ Abdominal Pain denies Diarrhea or Constipation Genitourinary: denies: Dysuria Neurological: denies: Headaches Vital Signs: Last Vital Signs Temp Pulse Resp BP Pulse Ox 97.6 F 86 18 100/51 96 05/20/16 10:36 05/20/16 10:36 05/20/16 10:36 05/20/16 10:36 05/20/16 05:43 Neck: Supple Negative JVD No Bruit Respiratory: Clear to A&P Bilaterally Cardiovascular: S1 S2 Regular Rate and Rhythm Mid Systolic Click Gastrointestinal: Soft RUQ Tenderness Normal Bowel Sounds Ext: No Edema Labs: CBC, BMP 05/20/16 05:45 05/20/16 05:45 Hepatic Panel Total Bilirubin 0.4 mg/dL (0.2-1.0) D 05/20/16 05:45 AST 12 U/L (15-37) L D 05/20/16 05:45 ALT 16 U/L (12-78) 05/20/16 05:45 Alkaline Phosphatase 39 U/L (45-117) L 05/20/16 05:45 Albumin 3.1 g/dl (3.4-5.0) L D 05/20/16 05:45 Troponin, BNP 05/19/16 05/20/16 05/20/16 23:00 03:00 05:45 Troponin I 0.03 0.11 H 0.09 H Assessment/Plan ASSESSMENT: 1. Chest pain syndrome 2. Palpitations referable to PSVT terminated post Adenosine therapy administration, no No EKG or rhythm strip in chart (will attempt to obtain from EMS) 3. Troponin I elevation non specific, no clinical indications for ACS 4. Abnormal septal motion on echocardiography etiology of which is unclear, possible tachycardia induced 5. Nausea, vomiting and abdominal discomfort etiology to be determined PLAN: 1. Obtain EKG from EMS service 2. Continue IV fluids 3. Evaluation of abdominal pain as per the primary team 4. May consider initiating B-Kenan therapy hemodynamics permitting 5. Await final Echocardiography report pending decision regarding further evaluation including stress echocardiography also pending resolution of her GI symptoms Jarrett Cunningham MD
[2016-05-20] MEDS ORDERED: OXYCODONE/APAP 5/325MG COMBO TABLET PO ONE (13:09)
[2016-05-20] MEDS ORDERED: ACETAMINOPHEN 325 MG TABLET (FP) PO ONE (13:15)
[2016-05-20] MEDS ORDERED: oxyCODONE HCL 5 MG TABLET PO ONE (13:15)
--- NOTE | 2016-05-20 16:13 | PN ---
Teaching Attending Note Name of Resident: Justin Parker ATTENDING PHYSICIAN STATEMENT I saw and evaluated the patient. I reviewed the resident's note and discussed the case with the resident. I agree with the resident's findings and plan as documented. SUBJECTIVE: complains of CP in retrosternal area . slightly improved from yesterday . complains of palpitations in ambulance , now resolved. Had sinus congestion x3 weeks , reports N/V x 3 weeks . intermittent Abd pain in RUQ x few months , not related to BM or passing gas . pain comes directly when she eats , worse with movement. OBJECTIVE: NAD, flat affect . no facial droop, round equal pupils , nl oropharynx. TTP over maxillary and frontal sinuses . no LAP in neck . CV: RRR, no MRG, click heard in apex Lungs : CTAB ext L noedema or erythema Abd :soft, ND, NL BS , TTP in RUQ , no rebound tenderness or guarding , no hepatomegaly . Neg He's reproducible cp on sternum ASSESSMENT AND PLAN: 25 y/o lady with h/o fibromyalgia , migrains , and L ovarian cyst who presented with Chest pain, she was found to have SVTs in ambulance 1- Atypical CP: likely MS given reproducibility . ACS is unlikely . EKG with no evidence of pericarditis. trop and NL CKMb r/o myocarditis . Echo with no pericardial effusion . TSH nL -- can use NSAIDs for pain . percocet with caution 2- SVTs: rhythm strip pbtained from EMS ( SVTs , HR 160s) . now sinus tachy. received cardizem CD last night . - echo reviewed. trace Mr, TR. no WMA - case d/w Dr. Cunningham . will start toprol xl - needs stress echo as out pt 3- ABd pain , N/V : no clear etiology. she has tenderness in RUQ on exam but neg Eh's . her pain is intemittent x 3 weeks , once meal is started , not typical for biliary colic . LFTs NL - check US of RUQ. - zofran for nausea - gentle IV hydration as pt appear volume depleted 4- Microscopic hematuria :seen on last admission too. - repeat UA . - US of kidneys - check Alb/cr ration 5- Acute sinusitis : with duration ( > 10 days ) , and TTP over sinuses, this is an indication of Abx treatment - will start Abx
[2016-05-20] MEDS ORDERED: ACETAMINOPHEN/CAFFEINE/BUTALBITAL 1 TAB PO ONE (16:23)
[2016-05-20] MEDS: AMOX TR/POT CLAV 875MG/125MG TABLETS (FP) PO SCH (17:08)
[2016-05-20] MEDS ORDERED: METOCLOPRAMIDE HCL INJECTION 10 MG/2 ML VIAL IVPB ONE (20:50)
[2016-05-20 22:30] LABS: URINE APPEARANCE CLEAR; URINE BILIRUBIN NEGATIVE (NEGATIVE); URINE BLOOD 2+ (NEGATIVE); URINE COLOR STRAW; URINE GLUCOSE (UA) NEGATIVE (NEGATIVE); URINE KETONE NEGATIVE (NEGATIVE); URINE LEUK ESTERASE NEGATIVE (NEGATIVE); URINE NITRITE NEGATIVE (NEGATIVE); URINE PROTEIN NEGATIVE (NEGATIVE); URINE UROBILINOGEN NEGATIVE E.U./dl (0.2-1.0)
[2016-05-20 22:36] LABS: URINE RBC <1 /hpf (0-3); URINE WBC <1 /hpf (3-5)
[2016-05-20 22:43] LABS: URINE MARIJUANA THC NEGATIVE ng/ml (CUTOFF=50)
[2016-05-21] MEDS: SODIUM CHLORIDE 1,000 ML IV SCH (04:54)
[2016-05-21] MEDS ORDERED: METOCLOPRAMIDE HCL INJECTION 10 MG/2 ML VIAL IVPB PRN (04:57)
[2016-05-21] MEDS ORDERED: ACETAMINOPHEN 1000 MG/100 ML VIAL (NON FORMULARY) IVPB PRN (04:57)
--- NOTE | 2016-05-21 08:41 | PN ---
Physical Exam: SUBJECTIVE: Patient seen and examined c/o headache, continued nausea. nursing witnessed vomiting, mostly food. was given IV tylenol last night OBJECTIVE: Vital Signs Period Temp Pulse Resp BP Sys/Teran Pulse Ox Last 24 Hr 97 F-98.2 F 71-86 18-18 98-108/51-76 96-98 GENERAL: The patient is awake, alert, and fully oriented, in no acute distress. ENT: nares patent, oropharynx clear without exudates or erythema, moist mucous membranes. CHEST: ttp over mid sternum NECK: Trachea midline, full range of motion, supple. LUNGS: Breath sounds equal, clear to auscultation bilaterally, no wheezes, no crackles, no accessory muscle use. HEART: regular rate and rhythm, S1, S2 without murmur, rub or gallop. ABDOMEN: Soft, mild tenderness in RLQ, nondistended, normoactive bowel sounds, no guarding, no rebound EXTREMITIES: 2+ pulses, warm, well-perfused, no edema. Laboratory Results - last 24 hr 05/20/16 05/20/16 05/20/16 05:45 05:45 05:45 ESR 10 Sodium 143 Potassium 4.1 D Chloride 111 H Carbon Dioxide 24 Anion Gap 8 BUN 5 L D Creatinine 0.5 L D Creat Clearance w eGFR > 60 Random Glucose 79 Hemoglobin A1c % 4.4 L Calcium 7.5 L Phosphorus 2.8 Magnesium 2.4 D Total Bilirubin 0.4 D AST 12 L D ALT 16 Alkaline Phosphatase 39 L Troponin I 0.09 H Total Protein 5.5 L D Albumin 3.1 L D Triglycerides 79 Cholesterol 117 Total LDL Cholesterol 67 HDL Cholesterol 40 Urine Color Urine Appearance Urine pH Ur Specific [place] Urine Protein Urine Glucose (UA) Urine Ketones Urine Blood Urine Nitrite Urine Bilirubin Urine Urobilinogen Ur Leukocyte Esterase Urine RBC Urine WBC Ur Epithelial Cells Urine Creatinine Opiates Screen Methadone Screen Barbiturate Screen Phencyclidine Screen Ur Amphetamines Screen MDMA (Ecstasy) Screen Benzodiazepines Screen Cocaine Screen U Marijuana (THC) Screen 05/20/16 05/20/16 05/20/16 12:10 21:45 21:45 ESR Sodium Potassium Chloride Carbon Dioxide Anion Gap BUN Creatinine Creat Clearance w eGFR Random Glucose Hemoglobin A1c % Calcium Phosphorus Magnesium Total Bilirubin AST ALT Alkaline Phosphatase Troponin I Total Protein Albumin Triglycerides Cholesterol Total LDL Cholesterol HDL Cholesterol Urine Color Straw Urine Appearance Clear Urine pH 7.0 Ur Specific [place] 1.009 Urine Protein Negative Urine Glucose (UA) Negative Urine Ketones Negative Urine Blood 2+ H Urine Nitrite Negative Urine Bilirubin Negative Urine Urobilinogen Negative Ur Leukocyte Esterase Negative Urine RBC <1 Urine WBC <1 Ur Epithelial Cells Rare Urine Creatinine 20.6 Opiates Screen Positive Methadone Screen Negative Barbiturate Screen Negative Phencyclidine Screen Negative Ur Amphetamines Screen Negative MDMA (Ecstasy) Screen Negative Benzodiazepines Screen Negative Cocaine Screen Positive U Marijuana (THC) Screen Negative Active Medications Generic Name Dose Route Start Last Admin Trade Name Freq PRN Reason Stop Dose Admin Amoxicillin/Clavulanate Potassium 1 tab 05/20/16 17:30 05/20/16 17:08 Augmentin - 875mg Tablet PO 1 tab BID@0800,1730 JENNIFER Administration Sodium Chloride 1,000 mls @ 100 mls/hr 05/20/16 04:30 05/21/16 04:54 Normal Saline - IV 100 mls/hr ASDIR JENNIFER Administration Metoclopramide HCl 10 mg 05/21/16 04:57 Reglan Injection - IVPB Q6H PRN NAUSEA AND/OR VOMITING Metoprolol Succinate 25 mg 05/21/16 10:00 Toprol Xl - PO DAILY JENNIFER Naproxen 250 mg 05/20/16 14:01 Naprosyn - PO Q12H PRN MODERATE PAIN ASSESSMENT/PLAN: 25 year old woman who presents with atypical chest pain was found to have sinus tachycardia in ED, report of SVT in EMS that was treated with and improved with adenosine 6mg, also complains of vomiting, nausea, abdominal pain, sinus congestion for past 3 weeks. - Discussed with Dr. Pastrana, augmentin may cause false positive for cocaine, will test urine prior to augmentin for accuracy #Nausea/vomiting - protonix 40IVPB HS - continue IVF #Atypical chest Pain - unclear in etiology, cardiomyopathy vs musculoskeletal - troponin trend nonspecific, likely from demand ischemia vs leakage from tachycardia - since the pain is reproducible, echo is normal, lipid panel wnl and HBA1c 4.4 , low suspicion for ACS - will treat musculoskeletal pain with naproxsyn 250mg po q12 for pain, will avoid morphine, narcotics and IV pain medications in this patient - urine toxicology to r/o drug use - ESR is low, unlike to be inflammatory cause #Sinus tachycardia - no events recorded on monitor, lastest EKG NSR without any axis deviation or acute ischemic changes - ED strip with SVT, HR 160's - toprol 25mg po daily - cardiology Dr. Cunningham - continue fluids NS @100mls/hr #Migraines - fiorecet po #Sinusitis - will treat with Augmentin 875 BID for 10 days. - ENT consult #Hematuria - past 3 u/a's have 3+ or 2+ blood in urine, patient is not menstruating - renal ultrasound with normal kidneys, will refer to print binding worker for outpatient work-up DVT: low risk, encourage ambulation Diet: regular diet Visit type - Emergency Visit Emergency Visit: No - New Patient This patient is new to me today: No - Critical Care Critical Care patient: No - Discharge Referral Referred to [facility] Med P.C.: No
[2016-05-21] MEDS: AMOX TR/POT CLAV 875MG/125MG TABLETS (FP) PO SCH ×2 (09:17→17:25)
[2016-05-21] MEDS: NAPROXEN 250 MG TABLET (FP) PO PRN ×2 (09:17→21:46)
[2016-05-21] MEDS: METOPROLOL SUCCINATE 25 MG TAB.SR.24H (FP) PO SCH (09:18)
--- NOTE | 2016-05-21 10:07 | PN ---
Progress Note (short form) - Note Progress Note: S: 25 year old female, admitted with complaints of nausea, vomiting, epistaxis and was noted be in supra ventricular tachycardia with rates over 200 bpm as documented on ECG done by paramedics. Patient also complaints of localized left parasternal chest pain described by sharp, aggravated by change in position. Pain according to the patient is nonpluratic. Patient states that she still has nausea and vomiting. Also is complaining of right lower quadrant discomfort. No history of chills or fever or night sweats. She has experienced palpitations in the recent past but were not as pronounced. And was short lived. She also is complaining of right frontal headache and recurring epistaxis. There has been no recurrence of palpitations since admission. She denies use of drugs including cocaine. She states that on rare occasions she has used marijuana. Active Medications Generic Name Dose Route Start Last Admin Trade Name Freq PRN Reason Stop Dose Admin Amoxicillin/Clavulanate Potassium 1 tab 05/20/16 17:30 05/21/16 09:17 Augmentin - 875mg Tablet PO 1 tab BID@0800,1730 JENNIFER Administration Sodium Chloride 1,000 mls @ 100 mls/hr 05/20/16 04:30 05/21/16 04:54 Normal Saline - IV 100 mls/hr ASDIR JENNIFER Administration Metoclopramide HCl 10 mg 05/21/16 04:57 Reglan Injection - IVPB Q6H PRN NAUSEA AND/OR VOMITING Metoprolol Succinate 25 mg 05/21/16 10:00 05/21/16 09:18 Toprol Xl - PO 25 mg DAILY JENNIFER Administration Naproxen 250 mg 05/20/16 14:01 05/21/16 09:17 Naprosyn - PO 250 mg Q12H PRN Administration MODERATE PAIN O: 25 year old female was in no acute distress, no pallor, cyanosis, clubbing, or jaundice. Last Vital Signs Temp Pulse Resp BP Pulse Ox 98.1 F 84 18 100/72 98 05/21/16 06:00 05/21/16 06:00 05/21/16 06:00 05/21/16 06:00 05/20/16 21:00 Neck: Supple, no JVD, negative HJR, carotids were equal and upstrokes were normal, no thyromegaly appreciated. Heart: PMI was in the 5th intercostal space, no heaves or thrills, S1 and S2 were normal. Nonejection systolic click heard along the left sternal border and apex. No audible murmur, gallops or rubs heard. Chest: Normal AP diameter, expansion grossly appears to be normal. Point tenderness at the 4th and 5th left costochondral joint. Lungs: Clear on auscultation bilaterally. Abdomen: Soft, right lower quadrant tenderness on palpations. No rebound tenderness. no hepatosplenomegaly appreciated, and no palpable masses were felt. Extremities: No calf tenderness or dependent edema. Pulses are normal. CBC, BMP 05/20/16 05:45 05/20/16 05:45 Laboratory Results - last 24 hr 05/20/16 05/20/16 05/20/16 05:45 12:10 21:45 ESR 10 Urine Color Urine Appearance Urine pH Ur Specific Francis Urine Protein Urine Glucose (UA) Urine Ketones Urine Blood Urine Nitrite Urine Bilirubin Urine Urobilinogen Ur Leukocyte Esterase Urine RBC Urine WBC Ur Epithelial Cells Urine Creatinine 20.6 Opiates Screen Positive Methadone Screen Negative Barbiturate Screen Negative Phencyclidine Screen Negative Ur Amphetamines Screen Negative MDMA (Ecstasy) Screen Negative Benzodiazepines Screen Negative Cocaine Screen Positive U Marijuana (THC) Screen Negative 05/20/16 21:45 ESR Urine Color Straw Urine Appearance Clear Urine pH 7.0 Ur Specific Francis 1.009 Urine Protein Negative Urine Glucose (UA) Negative Urine Ketones Negative Urine Blood 2+ H Urine Nitrite Negative Urine Bilirubin Negative Urine Urobilinogen Negative Ur Leukocyte Esterase Negative Urine RBC <1 Urine WBC <1 Ur Epithelial Cells Rare Urine Creatinine Opiates Screen Methadone Screen Barbiturate Screen Phencyclidine Screen Ur Amphetamines Screen MDMA (Ecstasy) Screen Benzodiazepines Screen Cocaine Screen U Marijuana (THC) Screen Rhythm strip by paramedics was reviewed ECG of 05/20/16 Ventricular rate: 85 bpm Normal sinus rhythm Normal ECG Echocardiogram was reviewed and there appears to be myomatous changes involving mitral leaflets and tricuspid leaflefts, no clear cut mitral valve prolapse was seen. There appears to be a small posterior pericardial effusion. Left ventircular systolic function on the short axis view appears normal. Mild to moderate pulmoni regurgitation, mild mitral and tricuspid regurgitation. Impression: 1. Paroxysmal Supraventricular tachycardia (rates over 200 bpm) Code(s): I47.1 - SUPRAVENTRICULAR TACHYCARDIA 2. Toxicology positive for cocaine Code(s): F14.10 - COCAINE ABUSE, UNCOMPLICATED 3. Ausculatatory findings compatible with mitral valve prolapse. Code(s): I34.1 - NONRHEUMATIC MITRAL (VALVE) PROLAPSE 4. History recurring epistaxis and right frontal headaches possibility of sinusitus needs to be excluded. Code(s): R04.0 - EPISTAXIS 5. Right lower quadrant abdominal discomfort etiology to be determined, appendicitis needs to be excluded. 6. Post tachycardia elevation of troponins, most likely related to demand injury. Code(s): R79.89 - OTHER SPECIFIED ABNORMAL FINDINGS OF BLOOD CHEMISTRY 7. Localized left parasternal sharp chest discomfort is most likely musculoskeletal in origin. Code(s): R07.9 - CHEST PAIN, UNSPECIFIED Qualifiers: Chest pain type: unspecified Qualified Code(s): R07.9 - Chest pain, unspecified Recommendations: 1. The attending/resident will be sending a sample of the urine obtained prior to patient receiving amoxicillin (to exclude a possibility of a false positive test secondary to amoxicillin). 2. ENT evaluation. 3. Surgical and/or GI evaluation. 4. If the follow up toxicology is negative for cocaine, patient will require electrophysiological evaluation and possible radiofrequency ablation, especially in view of extremely rapid heart rate, associated with SVT. Attestation: Documentation prepared by Amish Smith, acting as medical records specialist for Braden Pastrana MD.
[2016-05-21 14:18] LABS: CREATININE RANDOM URINE 18.7 mg/dL (Not Estab.); MICRO ALBUMIN RANDOM UR 3.2 ug/mL (Not Estab.)
[2016-05-21] MEDS ORDERED: ACETAMINOPHEN/CAFFEINE/BUTALBITAL 1 TAB PO ONE (18:01)
--- NOTE | 2016-05-21 18:40 | PN ---
Teaching Attending Note Name of Resident: Justin Parker ATTENDING PHYSICIAN STATEMENT I saw and evaluated the patient. I reviewed the resident's note and discussed the case with the resident. I agree with the resident's findings and plan as documented. SUBJECTIVE: Patient is c/o having Nausea with vomiting. No acute distress. OBJECTIVE: Vital Signs Temperature 98.7 F 05/21/16 15:34 Pulse Rate 92 H 05/21/16 15:34 Respiratory Rate 18 05/21/16 15:34 Blood Pressure 97/71 05/21/16 15:34 O2 Sat by Pulse Oximetry (%) 98 05/21/16 13:00 GENERAL: The patient is awake, alert, and fully oriented, in no acute distress. HEAD: Normal with no signs of trauma. ttp b/l temporal areas. maxillary and frontal sinus tenderness. EYES: PERRL, extraocular movements intact, sclera anicteric, conjunctiva clear. ENT: Ears normal, oropharynx clear without exudates or erythema, moist mucous membranes. NECK: Trachea midline, full range of motion, supple. LUNGS/CHEST: CTA BL, NO R/R/W HEART: regular rate and rhythm, S1, S2 without murmur, rub or gallop. ABDOMEN: Soft, mild tenderness in RUQ, nondistended, normoactive bowel sounds, no guarding, no rebound. EXTREMITIES: 2+ pulses, warm, well-perfused, no edema. NEUROLOGICAL: Cranial nerves II through XII grossly intact. Normal speech PSYCH: Normal mood, normal affect. SKIN: Warm, dry, normal turgor, no rashes or lesions noted CBCD WBC 6.2 K/mm3 (4.0-10.0) D 05/20/16 05:45 RBC 3.75 M/mm3 (3.60-5.2) D 05/20/16 05:45 Hgb 10.8 GM/dL (10.7-15.3) D 05/20/16 05:45 Hct 31.1 % (32.4-45.2) L D 05/20/16 05:45 MCV 83.1 fl (80-96) 05/20/16 05:45 MCHC 34.8 g/dl (32.0-36.0) 05/20/16 05:45 RDW 12.5 % (11.6-15.6) 05/20/16 05:45 Plt Count 189 K/MM3 (134-434) D 05/20/16 05:45 MPV 10.0 fl (7.5-11.1) 05/20/16 05:45 CMP Sodium 143 mmol/L (136-145) 05/20/16 05:45 Potassium 4.1 mmol/L (3.5-5.1) D 05/20/16 05:45 Chloride 111 mmol/L (98-107) H 05/20/16 05:45 Carbon Dioxide 24 mmol/L (21-32) 05/20/16 05:45 Anion Gap 8 (8-16) 05/20/16 05:45 BUN 5 mg/dL (7-18) L D 05/20/16 05:45 Creatinine 0.5 mg/dL (0.55-1.02) L D 05/20/16 05:45 Creat Clearance w eGFR > 60 (>60) 05/20/16 05:45 Random Glucose 79 mg/dL (74-106) 05/20/16 05:45 Calcium 7.5 mg/dL (8.5-10.1) L 05/20/16 05:45 Total Bilirubin 0.4 mg/dL (0.2-1.0) D 05/20/16 05:45 AST 12 U/L (15-37) L D 05/20/16 05:45 ALT 16 U/L (12-78) 05/20/16 05:45 Alkaline Phosphatase 39 U/L (45-117) L 05/20/16 05:45 Total Protein 5.5 g/dl (6.4-8.2) L D 05/20/16 05:45 Albumin 3.1 g/dl (3.4-5.0) L D 05/20/16 05:45 CARDIAC ENZYMES Creatine Kinase 109 IU/L (26-192) 05/20/16 03:00 Troponin I 0.09 ng/ml (0.00-0.05) H 05/20/16 05:45 Current Medications Generic Name Dose Route Start Last Admin Trade Name Freq PRN Reason Stop Dose Admin Amoxicillin/Clavulanate Potassium 1 tab 05/20/16 17:30 05/21/16 17:25 Augmentin - 875mg Tablet PO 1 tab BID@0800,1730 JENNIFER Administration Sodium Chloride 1,000 mls @ 100 mls/hr 05/20/16 04:30 05/21/16 04:54 Normal Saline - IV 100 mls/hr ASDIR JENNIFER Administration Pantoprazole Sodium 100 mls @ 200 mls/hr 05/22/16 06:00 Protonix 40mg Ivpb (Pre-Docked) IVPB DAILY@0600 JENNIFER Metoprolol Succinate 25 mg 05/21/16 10:00 05/21/16 09:18 Toprol Xl - PO 25 mg DAILY JENNIFER Administration Naproxen 250 mg 05/20/16 14:01 05/21/16 09:17 Naprosyn - PO 250 mg Q12H PRN Administration MODERATE PAIN Home Medications Medication Instructions Recorded Diltiazem Cd [Cardizem Cd -] 120 mg PO DAILY #14 cap.cd.24h 05/20/16 Urine Test Results Urine Color Straw 05/20/16 21:45 Urine Appearance Clear 05/20/16 21:45 Urine pH 7.0 (5.0-8.0) 05/20/16 21:45 Ur Specific [place] 1.009 (1.001-1.035) 05/20/16 21:45 Urine Protein Negative (NEGATIVE) 05/20/16 21:45 Urine Glucose (UA) Negative (NEGATIVE) 05/20/16 21:45 Urine Ketones Negative (NEGATIVE) 05/20/16 21:45 Urine Blood 2+ (NEGATIVE) H 05/20/16 21:45 Urine Nitrite Negative (NEGATIVE) 05/20/16 21:45 Urine Bilirubin Negative (NEGATIVE) 05/20/16 21:45 Ur Leukocyte Esterase Negative (NEGATIVE) 05/20/16 21:45 Urine RBC <1 /hpf (0-3) 05/20/16 21:45 Urine WBC <1 /hpf (3-5) 05/20/16 21:45 Ur Epithelial Cells Rare /hpf (FEW) 05/20/16 21:45 Urine Bacteria Rare /hpf (NONE SEEN) 05/20/16 01:15 Social History Laboratory Tests 05/20/16 21:45 Opiates Screen Positive Methadone Screen Negative Barbiturate Screen Negative Phencyclidine Screen Negative Ur Amphetamines Screen Negative MDMA (Ecstasy) Screen Negative Benzodiazepines Screen Negative Cocaine Screen Positive U Marijuana (THC) Screen Negative ASSESSMENT AND PLAN: 25 y/o lady with h/o fibromyalgia , hx of migraines , and L ovarian cyst who presented with Chest pain, she was found to have SVTs with a rate of 200s in ambulance, Rythem strip reviewed. # s/p SVTs: rhythm strip obtained from EMS , now the rate is 92 , on toprol 25mg po daily Discussed with wants her to have stress echo in am ; echo reviewed. trace Mr, TR. no WMA # Atypical CP: going for stress echoin am discussed with , otherwise trop and NL CKMb r/o myocarditis . Echo with no pericardial effusion . TSH nL Microscopic hematuria :seen on last admission too. possible due to cocaine use if the UA is accurate # Acute sinusitis over sinuses: with duration ( > 10 days ), this is an indication of Abx treatment on Augmentin 875mg po bid x 10 days ENT consult discussed with . DVT Px: Ambulatory
[2016-05-21] MEDS: PANTOPRAZOLE SODIUM 40 MG/100 ML PRE-DOCKED IVPB SCH (21:46)
[2016-05-21] MEDS ORDERED: PANTOPRAZOLE SODIUM 100 ML IVPB SCH (22:00)
[2016-05-22] MEDS ORDERED: PANTOPRAZOLE SODIUM 100 ML IVPB SCH (06:00)
[2016-05-22] MEDS: NAPROXEN 250 MG TABLET (FP) PO PRN ×2 (08:25→20:48)
[2016-05-22] MEDS ORDERED: PANTOPRAZOLE SODIUM 40 MG in SODIUM CHLORIDE 100 ML IVPB ONE (08:25)
[2016-05-22] MEDS: AMOX TR/POT CLAV 875MG/125MG TABLETS (FP) PO SCH ×2 (08:26→18:54)
[2016-05-22] MEDS: METOPROLOL SUCCINATE 25 MG TAB.SR.24H (FP) PO SCH ×2 (08:30→10:06)
[2016-05-22] MEDS: SODIUM CHLORIDE 1,000 ML IV SCH (09:05)
[2016-05-22] MEDS ORDERED: IBUPROFEN 800 MG/8 ML IJ IVPB ONE (09:15)
[2016-05-22] MEDS ORDERED: METOCLOPRAMIDE HCL INJECTION 10 MG/2 ML VIAL IVPB ONE (09:30)
[2016-05-22] MEDS ORDERED: MAGNESIUM SULF 50% (8.12 MEQ/2 ML-1 GM VIAL) IVPB ONE (12:02)
--- NOTE | 2016-05-22 12:57 | PN ---
Physical Exam: SUBJECTIVE: Patient seen and examined. c/o of headache, photophobia, decreased sensation over her right upper and scalp and feeling like her "tongue is heavy" and speech is slurred. in the past her migraines would improve with ibuprofen and rest denies numbess, tingling, SOB, cough, difficulty swallowing. OBJECTIVE: Vital Signs Period Temp Pulse Resp BP Sys/Teran Pulse Ox Last 24 Hr 98 F-99.1 F 85-98 14-20 90-128/53-83 98 GENERAL: The patient is awake, alert, and fully oriented, in no acute distress. HEAD: Normal with no signs of trauma. decreased sensation over right right eye, upper cheek and right temporal area. EYES: PERRL, extraocular movements intact, sclera anicteric, conjunctiva clear. No ptosis. ENT: Ears normal, nares patent, oropharynx clear without exudates/erythema, moist mucous. mild tenderness over cervical spine. membranes, no PND, uvula midline. frontal and maxially sinus tenderness. tongue nonedematous, nonerythematous. NECK: Trachea midline, full range of motion, supple. LUNGS: Breath sounds equal, clear to auscultation bilaterally, no wheezes, no crackles, no accessory muscle use. HEART: Regular rate and rhythm, S1, S2 ABDOMEN: Soft, nontender, nondistended, normoactive bowel sounds, no guarding, no rebound, no hepatosplenomegaly, no masses. EXTREMITIES: 2+ pulses, warm, well-perfused, no edema. NEUROLOGICAL: Cranial nerves II through XII grossly intact. Normal speech, gait not observed. sensation decreased on left foot/leg. 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 strength at shoulder, elbow,wrist,hip,knee,ankle, toes 4/5 on right and left. PSYCH: Normal mood, normal affect. Laboratory Results - last 24 hr 05/20/16 12:10 Ur Random Creatinine 18.7 Ur Random Microalbumin 3.2 Microalb/Creat Ratio 17.1 Active Medications Generic Name Dose Route Start Last Admin Trade Name Freq PRN Reason Stop Dose Admin Amoxicillin/Clavulanate Potassium 1 tab 05/20/16 17:30 05/22/16 08:26 Augmentin - 875mg Tablet PO 1 tab BID@0800,1730 JENNIFER Administration Sodium Chloride 1,000 mls @ 100 mls/hr 05/20/16 04:30 05/22/16 09:05 Normal Saline - IV 100 mls/hr ASDIR JENNIFER Administration Metoprolol Succinate 25 mg 05/21/16 10:00 05/22/16 10:06 Toprol Xl - PO Not Given DAILY JENNIFER Naproxen 250 mg 05/20/16 14:01 05/22/16 08:25 Naprosyn - PO 250 mg Q12H PRN Administration MODERATE PAIN Pantoprazole Sodium 40 mg 05/21/16 22:00 05/21/16 21:46 Protonix 40mg Ivpb (Pre-Docked) IVPB 40 mg HS JENNIFER Administration ASSESSMENT/PLAN: 25 year old woman who presents with atypical chest pain was found to have sinus tachycardia in ED, report of SVT in EMS that was treated with and improved with adenosine 6mg, also complains of vomiting, nausea, abdominal pain, sinus congestion for past 3 weeks. - Discussed with Dr. Pastrana, augmentin may cause false positive for cocaine, will test urine prior to augmentin for accuracy - urine sample taken prior to augmentin dose is also positive for cocaine, patient still adamantly denying cocaine or any illicit drug use. #Nausea/vomiting - protonix 40IVPB HS - continue IVF #Atypical chest Pain - unclear in etiology, cardiomyopathy vs musculoskeletal - improved - will treat musculoskeletal pain with naproxsyn 250mg po q12 for pain, will avoid morphine, narcotics and IV pain medications in this patient #Sinus tachycardia - no events recorded on monitor. - toprol 25mg po daily - change to cardizem CD given cocain positive urine. - cardiology Dr. Cunningham - continue fluids NS @100mls/hr #Migraines - fiorecet po prn - magnesium 1gm IV - given continued headache since admission and no full relief with po or iv meds , will r/o mass, head MRI without contrast - will provide referral to Dr. Washington as outpatient #Sinusitis - will treat with Augmentin 875 BID for 10 days. - ENT consult, will provide outpatient follow-up information if valuation consultant does not come tomorrow. #Hematuria - past 3 u/a's have 3+ or 2+ blood in urine, patient is not menstruating - renal ultrasound with normal kidneys, will refer to national park tour guide for outpatient work-up DVT: low risk, encourage ambulation Diet: regular diet Visit type - Emergency Visit Emergency Visit: No - New Patient This patient is new to me today: No - Critical Care Critical Care patient: No - Discharge Referral Referred to [facility] No
[2016-05-22 12:58] LABS: URINE MARIJUANA THC NEGATIVE ng/ml (CUTOFF=50)
--- NOTE | 2016-05-22 13:55 | PN ---
Progress Note, Physician History of Present Illness: Stress echo normal, no further SVT recurrences, cocaine + on tox screen. - Current Medication List Current Medications: Active Medications Amoxicillin/Clavulanate Potassium (Augmentin - 875mg Tablet) 1 tab PO BID@0800, 1730 [facility] Last Admin: 05/22/16 08:26 Dose: 1 tab Sodium Chloride (Normal Saline -) 1,000 mls @ 100 mls/hr IV ASDIR [facility] Last Admin: 05/22/16 09:05 Dose: 100 mls/hr Metoprolol Succinate (Toprol Xl -) 25 mg PO DAILY [facility] Last Admin: 05/22/16 10:06 Dose: Not Given Naproxen (Naprosyn -) 250 mg PO Q12H PRN PRN Reason: MODERATE PAIN Last Admin: 05/22/16 08:25 Dose: 250 mg Pantoprazole Sodium (Protonix 40mg Ivpb (Pre-Docked)) 40 mg IVPB HS [facility] Last Admin: 05/21/16 21:46 Dose: 40 mg - Objective Vital Signs: Vital Signs Temperature 98 F 05/22/16 06:00 Pulse Rate 94 H 05/22/16 08:10 Respiratory Rate 14 05/22/16 08:10 Blood Pressure 106/62 05/22/16 08:10 O2 Sat by Pulse Oximetry (%) 96 05/22/16 13:00 Constitutional: Yes: No Distress, Calm Neck: Yes: Supple Cardiovascular: Yes: Regular Rate and Rhythm Respiratory: Yes: Regular, CTA Bilaterally Gastrointestinal: Yes: Normal Bowel Sounds, Soft Edema: No Labs: CBC, BMP 05/20/16 05:45 05/20/16 05:45 INR, PTT INR 1.24 (0.82-1.09) H 05/19/16 23:00 Assessment/Plan Echocardiogram was reviewed and there appears to be myomatous changes involving mitral leaflets and tricuspid leaflefts, no clear cut mitral valve prolapse was seen. There appears to be a small posterior pericardial effusion. Left ventircular systolic function on the short axis view appears normal. Mild to moderate pulmoni regurgitation, mild mitral and tricuspid regurgitation. 05/21/2016 Stress echo: No ischemia by EKG or echo criteria Impression: 1. Paroxysmal Supraventricular tachycardia (rates over 200 bpm) Code(s): I47.1 - SUPRAVENTRICULAR TACHYCARDIA 2. Toxicology positive for cocaine Code(s): F14.10 - COCAINE ABUSE, UNCOMPLICATED 3. Ausculatatory findings compatible with mitral valve prolapse. Code(s): I34.1 - NONRHEUMATIC MITRAL (VALVE) PROLAPSE 4. Post tachycardia elevation of troponins, most likely related to demand injury. Code(s): R79.89 - OTHER SPECIFIED ABNORMAL FINDINGS OF BLOOD CHEMISTRY Recommendations: 1. Change Toprol to Cardizem CD given cocaine abuse 2. May d/c home from CV standpoint
--- NOTE | 2016-05-22 14:16 | CONS ---
DATE OF CONSULTATION: 05/20/2016 REQUESTING PHYSICIAN: Hospitalist. CHIEF COMPLAINT: Chest discomfort, palpitation, evaluation of cardiac arrhythmia. INFORMANT: Information was obtained from the patient. HISTORY: A 25-year-old female of descent with no significant past medical history who was in usual state of health until recently when she started reporting abdominal discomfort in the right upper quadrant with recurrent nausea and vomiting. Symptoms have been noted for the last several weeks. Patient in addition reported recent nasal congestion with cough nonproductive of sputum. Yesterday, patient had sudden onset of palpitations which persisted with associated dizziness and lightheadedness. Patient reported a near syncopal episode. Patient in addition reported chest discomfort. EMS was contacted and apparently upon arrival she was noted to be in a narrow complex tachycardia for which adenosine was administered with termination. EKG or rhythm strip is not available at the moment. Upon transport to the emergency room, patient was noted to be in sinus tachycardia. Patient denies any history of dyspnea, orthopnea, paroxysmal nocturnal dyspnea, or peripheral edema. Patient denies any history of fatigue and tiredness. Patient does not report any history of hypertension, diabetes mellitus, hypercholesterolemia. PAST MEDICAL HISTORY: None. PAST SURGICAL HISTORY: None. SOCIAL HISTORY: Denies smoking or alcohol intake. FAMILY HISTORY: No family history of premature coronary artery disease or sudden cardiac . MEDICATION: Medical therapy at home none. REVIEW OF SYSTEMS: Constitutional: Reported fever, chills. Cardiovascular: As noted above. Respiratory: Denies cough, sputum production. Gastrointestinal: Reported nausea, vomiting, a right upper quadrant discomfort. Denied diarrhea or constipation. Genitourinary: Denied dysuria. Neurological: Denied any headaches. PHYSICAL EXAMINATION: Vital signs: Blood pressure 100/51 mmHg, pulse rate 86 beats per minute. Head/Neck: Pupils equal, reactive to light and accommodation. Extraocular muscles intact. Anicteric sclerae. Negative JVD. No bruit appreciated. Chest: Clear to auscultation, percussion. Cardiovascular: S1, S2. Regularly. Midsystolic click. No murmurs or gallops. Abdomen: Soft, benign. Normoactive bowel sounds. Extremity: Negative edema. Intact distal pulses. No calf tenderness. Electrocardiogram reveals sinus tachycardia with a minor right sided conduction delay. CBC revealed white cell count 6.2, hemoglobin 10.8, platelets 189. Basic metabolic profile revealed a sodium 143, potassium 4.1, BUN 5, creatinine 0.5, glucose 79. Troponin 0.03, repeat 0.11, . Bedside echocardiography preliminary report of which revealed abnormal septal motion with overall preserved left ventricular systolic function redundant anterior mitral valve leaflet with no evidence of mitral valve prolapse, normal chamber dimensions with mild mitral valve regurgitation and trace to mild tricuspid valve regurgitation and no pericardial effusion. ASSESSMENT: 1. Chest pain syndrome. 2. Palpitations referable to paroxysmal supraventricular tachycardia terminated, post adenosine therapy administration, no electrocardiogram or rhythm strip available in chart, will attempt to obtain from emergency medical service. 3. Troponin I elevation, nonspecific, with no clinical indication for acute coronary syndrome. 4. Abnormal septal motion. Unclear etiology. Could be related to the above noted paroxysmal supraventricular tachycardia. 5. Nausea, vomiting, and abdominal discomfort, etiology of which is to be determined. Cholelithiasis to be excluded. RECOMMENDATION: 1. Obtain EKG from EMS services for review. 2. Intravenous fluid. 3. Evaluation of the abdominal discomfort as per primary team. 4. May consider initiating beta aj therapy, hemodynamics permitting. 5. Await final echocardiography report pending decision regarding further evaluation including possible stress echocardiography also pending resolution of her gastrointestinal symptomatology. Thank you for the kind referral. VIANCA CUADRA M.D. CATHERINE/[id number]
--- NOTE | 2016-05-22 19:11 | CON.ENT ---
Consult Consult Specialty:: ENT Referred by:: Dr. Patel Reason for Consultation:: sinusitis - History of Present Illness Chief Complaint: nasal congestion and drainage, pain History of Present Illness: 25 yo F admitted for tachycardia (200) on telemetry, medical management in progress reports separate history of bilateral nasal drainage, crusting and occasional bleeding denies known nasal allergies, smell sense WNL - History Source History Provided By: Patient, Medical Record Limitations to Obtaining History: No Limitations - Past Medical History ...LMP: 12/24/15 - Alcohol/Substance Use Hx Alcohol Use: No - Smoking History Smoking history: Never smoked Have you smoked in the past 12 months: No Aproximately how many cigarettes per day: 0 Home Medications - Allergies Allergies/Adverse Reactions: Allergies Allergy/AdvReac Type Severity Reaction Status Date / Time No Known Allergies Allergy Verified 01/03/16 08:39 - Home Medications Home Medications: Ambulatory Orders Diltiazem Cd [Cardizem Cd -] 120 mg PO DAILY #14 cap.cd.24h 05/20/16 Physical Exam-ENT Vital Signs: Vital Signs Temperature 98 F 05/22/16 06:00 Pulse Rate 98 H 05/22/16 14:02 Respiratory Rate 18 05/22/16 14:02 Blood Pressure 150/72 05/22/16 14:02 O2 Sat by Pulse Oximetry (%) 96 05/22/16 13:00 Constitutional: Yes: Well Nourished, No Distress, Calm Head: Yes: WNL Face: Yes: WNL, Other (mild tenderness right maxillary sinus) Eyes: Yes: WNL Nose: Yes: Other (bilateral anterior crusting, minimal blood, turbinate edema, mucosa dry, obstructed) Nasal Passage: Yes: Other (obstructed) Oral/Pharynx: Yes: WNL Outer Ear: Yes: WNL Ear Canal: Yes: WNL Tympanic Membrane: Yes: WNL Neck: Yes: WNL Imaging - Results Chest X-ray: Report Reviewed Problem List - Problems (1) Nasal congestion Assessment/Plan: chronic nasal congestion and crusting, bleeding now with some sinus pain of note, toxicology screen positive for cocaine, though in record pt denies use question of effect of augmentin causing a positive cocaine screen noted in chart Augmentin started to cover acute sinusitis nasal saline spray ordered use BID to office after discharge for further evaluation and management Thank you for consultation Pato Garcia MD FACS Code(s): R09.81 - NASAL CONGESTION
--- NOTE | 2016-05-22 19:50 | PN ---
Teaching Attending Note Name of Resident: Justin Parker ATTENDING PHYSICIAN STATEMENT I saw and evaluated the patient. I reviewed the resident's note and discussed the case with the resident. I agree with the resident's findings and plan as documented. SUBJECTIVE: Patient is c/o having headache , has hx of migraine headache. no fever or chills. OBJECTIVE: Vital Signs Temperature 98 F 05/22/16 06:00 Pulse Rate 98 H 05/22/16 14:02 Respiratory Rate 18 05/22/16 14:02 Blood Pressure 150/72 05/22/16 14:02 O2 Sat by Pulse Oximetry (%) 96 05/22/16 13:00 CBCD WBC 6.2 K/mm3 (4.0-10.0) D 05/20/16 05:45 RBC 3.75 M/mm3 (3.60-5.2) D 05/20/16 05:45 Hgb 10.8 GM/dL (10.7-15.3) D 05/20/16 05:45 Hct 31.1 % (32.4-45.2) L D 05/20/16 05:45 MCV 83.1 fl (80-96) 05/20/16 05:45 MCHC 34.8 g/dl (32.0-36.0) 05/20/16 05:45 RDW 12.5 % (11.6-15.6) 05/20/16 05:45 Plt Count 189 K/MM3 (134-434) D 05/20/16 05:45 MPV 10.0 fl (7.5-11.1) 05/20/16 05:45 CMP Sodium 143 mmol/L (136-145) 05/20/16 05:45 Potassium 4.1 mmol/L (3.5-5.1) D 05/20/16 05:45 Chloride 111 mmol/L (98-107) H 05/20/16 05:45 Carbon Dioxide 24 mmol/L (21-32) 05/20/16 05:45 Anion Gap 8 (8-16) 05/20/16 05:45 BUN 5 mg/dL (7-18) L D 05/20/16 05:45 Creatinine 0.5 mg/dL (0.55-1.02) L D 05/20/16 05:45 Creat Clearance w eGFR > 60 (>60) 05/20/16 05:45 Random Glucose 79 mg/dL (74-106) 05/20/16 05:45 Calcium 7.5 mg/dL (8.5-10.1) L 05/20/16 05:45 Total Bilirubin 0.4 mg/dL (0.2-1.0) D 05/20/16 05:45 AST 12 U/L (15-37) L D 05/20/16 05:45 ALT 16 U/L (12-78) 05/20/16 05:45 Alkaline Phosphatase 39 U/L (45-117) L 05/20/16 05:45 Total Protein 5.5 g/dl (6.4-8.2) L D 05/20/16 05:45 Albumin 3.1 g/dl (3.4-5.0) L D 05/20/16 05:45 CARDIAC ENZYMES Creatine Kinase 109 IU/L (26-192) 05/20/16 03:00 Troponin I 0.09 ng/ml (0.00-0.05) H 05/20/16 05:45 Current Medications Generic Name Dose Route Start Last Admin Trade Name Freq PRN Reason Stop Dose Admin Amoxicillin/Clavulanate Potassium 1 tab 05/20/16 17:30 05/22/16 18:54 Augmentin - 875mg Tablet PO 1 tab BID@0800,1730 JENNIFER Administration Diltiazem HCl 120 mg 05/22/16 14:15 05/22/16 14:51 Cardizem Cd - PO 120 mg DAILY JENNIFER Administration Sodium Chloride 1,000 mls @ 100 mls/hr 05/20/16 04:30 05/22/16 09:05 Normal Saline - IV 100 mls/hr ASDIR JENNIFER Administration Naproxen 250 mg 05/20/16 14:01 05/22/16 08:25 Naprosyn - PO 250 mg Q12H PRN Administration MODERATE PAIN Pantoprazole Sodium 40 mg 05/21/16 22:00 05/21/16 21:46 Protonix 40mg Ivpb (Pre-Docked) IVPB 40 mg HS JENNIFER Administration Sodium Chloride 2 spray 05/22/16 22:00 [place] Nasal Jackson - NS BID JENNIFER Home Medications Medication Instructions Recorded Diltiazem Cd [Cardizem Cd -] 120 mg PO DAILY #14 cap.cd.24h 05/20/16 ASSESSMENT AND PLAN: 25 y/o lady with h/o fibromyalgia , hx of migraines , and L ovarian cyst who presented with Chest pain, she was found to have SVTs with a rate of 200s in ambulance, Rythem strip reviewed. # s/p SVTs with rate of 200s : rhythm strip obtained from EMS , now the rate is 98 , changed toprol 25mg po daily to cardizem. Drug screen is positive for cocaine but denies any use of it, was sent the urine before given a dose of Augmentin since Augmentin might cause a false result. stress echo done today and it's negative # Atypical CP: resolved . Echo with no pericardial effusion . TSH nL Microscopic hematuria :seen on last admission too. possible due to cocaine use # Acute sinusitis over sinuses: with duration ( > 10 days ), this is an indication of Abx treatment on Augmentin 875mg po bid x 10 days ENT consult appreciated , ordered ocean spray by ENT. # Headache continues to complain MRI is ordered to r/o any pathology since patient's tox.is positive for cocaine Discharge the patient once MRI is done DVT Px: Ambulatory
[2016-05-22] MEDS: SODIUM CHLORIDE NASAL SPRAY 44 ML BOTTLE NS SCH (22:31)
[2016-05-22] MEDS: PANTOPRAZOLE SODIUM 40 MG/100 ML PRE-DOCKED IVPB SCH (22:31)
[2016-05-23 08:15] VITALS: BP 110/68; PULSE 92; TEMP 98.2
[2016-05-23] MEDS: AMOX TR/POT CLAV 875MG/125MG TABLETS (FP) PO SCH (08:41)
[2016-05-23] MEDS: SODIUM CHLORIDE 1,000 ML IV SCH (08:41)
[2016-05-23] MEDS: NAPROXEN 250 MG TABLET (FP) PO PRN (08:41)
[2016-05-23] MEDS: SODIUM CHLORIDE NASAL SPRAY 44 ML BOTTLE NS SCH (08:42)
--- NOTE | 2016-05-23 15:41 | DS ---
Physical Exam: OBJECTIVE: Vital Signs Period Temp Pulse Resp BP Sys/Teran Pulse Ox Last 24 Hr 97.9 F-98.4 F 80-92 14-20 100-136/37-80 96-98 LABS Laboratory Tests 05/19/16 05/19/16 05/19/16 22:30 23:00 23:00 WBC 10.3 H Hgb 13.3 Hct 39.0 Plt Count 264 D D-Dimer Sodium 141 Potassium 3.2 L D Chloride 102 Carbon Dioxide 26 BUN 8 Creatinine 0.7 Hemoglobin A1c % Troponin I 0.03 Triglycerides Cholesterol Total LDL Cholesterol HDL Cholesterol TSH 0.36 Urine Blood Urine Nitrite Ur Leukocyte Esterase Urine RBC Ur Random Creatinine Ur Random Microalbumin Urine Creatinine Microalb/Creat Ratio Opiates Screen Cocaine Screen 05/19/16 05/20/16 05/20/16 23:00 01:15 03:00 WBC Hgb Hct Plt Count D-Dimer < 200 Sodium Potassium Chloride Carbon Dioxide BUN Creatinine Hemoglobin A1c % Troponin I 0.11 H Triglycerides Cholesterol Total LDL Cholesterol HDL Cholesterol TSH Urine Blood 2+ H Urine Nitrite Negative Ur Leukocyte Esterase Negative Urine RBC <1 05/20/16 05/20/16 05/20/16 05:45 05:45 05:45 WBC 6.2 D Hgb 10.8 D Hct 31.1 L D Plt Count 189 D D-Dimer Sodium 143 Potassium 4.1 D Chloride 111 H Carbon Dioxide 24 BUN 5 L D Creatinine 0.5 L D Hemoglobin A1c % 4.4 L Troponin I 0.09 H Triglycerides 79 Cholesterol 117 Total LDL Cholesterol 67 HDL Cholesterol 40 05/20/16 05/20/16 05/20/16 12:10 12:10 12:10 WBC Hgb Hct Plt Count D-Dimer Sodium Potassium Chloride Carbon Dioxide BUN Creatinine Hemoglobin A1c % Troponin I Triglycerides Cholesterol Total LDL Cholesterol HDL Cholesterol TSH Urine Blood Urine Nitrite Ur Leukocyte Esterase Urine RBC Ur Random Creatinine 18.7 Ur Random Microalbumin 3.2 Urine Creatinine 20.6 Microalb/Creat Ratio 17.1 Opiates Screen Negative Cocaine Screen Positive 05/20/16 05/20/16 21:45 21:45 WBC Hgb Hct Plt Count D-Dimer Sodium Potassium Chloride Carbon Dioxide BUN Creatinine Hemoglobin A1c % Troponin I Triglycerides Cholesterol Total LDL Cholesterol HDL Cholesterol TSH Urine Blood 2+ H Urine Nitrite Negative Ur Leukocyte Esterase Negative Urine RBC <1 Ur Random Creatinine Ur Random Microalbumin Urine Creatinine Microalb/Creat Ratio Opiates Screen Positive Cocaine Screen Positive IMAGING: Brain MRI without contrast: The ventricles and basal cisterns appear unremarkable. No mass lesion, focal acute infarct or intracranial hemorrhage is identified. There is no shift of the midline structures. The craniocervical junction appears unremarkable. Flow voids are present within the central intracranial arterial circulation. There is minimal mucosal thickening in the ethmoid air cells. No suspicious bone marrow abnormal signal is identified. Impression: Unremarkable examination without evidence of acute intracranial pathology. U/s of gallbladder and kidneys: The liver is within normal limits in size with homogeneous echotexture. The gallbladder is adequately distended without intraluminal stones or thickening of its wall. No intra or extrahepatic bile duct dilatation is seen. The right and left kidney measured 9.8 and 9.4 cm , respectively. Both kidneys appear unremarkable. The spleen measures 9.2 cm in sagittal length with homogeneous echotexture. Visualized portion of the pancreas appears unremarkable. Visualized portion of the proximal abdominal aorta and inferior vena cava are patent. Normal flow in the main portal vein. IMPRESSION: Unremarkable examination. No gallstones are identified. Chest xray: The trachea is normal in size and is not deviated. Unremarkable contour of the cardiomediastinal silhouette. The lungs are well aerated. No evidence of airspace opacities, atelectasis, pleural effusion, or pneumothorax. No bulky hilar adenopathy is noted. The visualized osseous structures, and soft tissues are normal. Intact visualized osseous structures Impression. No evidence of active pulmonary disease. TESTING: Exercise echo: Negative exercise stress echocardiogram, adequate by heart rate criteria, without symptoms, diagnostic EKG chnages or echocardiogram evidence of ischemia. HOSPITAL COURSE: Date of Admission:05/20/16 - Date of Discharge: 05/23/16 25 year old woman who presented with atypical chest pain was found to have SVT in EMS that was treated with and improved with adenosine 6mg, also complains of vomiting, nausea, abdominal pain, sinus congestion for past 3 weeks. EKGs did not show any acute ischemic changes. She was in sinus tachycardia in the ED and was treated with cardizem 120mg which improved her HR. She had a small leak of troponins which is nonspecific and likely from demand more than ACS. Details of labs listed above. Her urine toxicology was positive for cocaine, although there are some assays that are affected by antibiotic use, urine sample taken prior to antibiotic use was also positive. I discussed with our lab, the cocaine test was sent out for confirmation is tested with mass spectrometry, which is not likely to give false positive for cocaine. Echocardiography revealed abnormal septal motion, with normal LV systolic function, redundant anterior mitral valve leaflet, mild MR and trace to mild TR, no pericardial effusion. She underwent stress echocardiogram using treadmill exercise test that was negative. She also c/o abdominal pain in the RUQ, ultrasound was negative for gallstones. For past few visits since 12/2015 she has had blood in her urinalysis. Renal ultrasound was negative for acute findings and microulbumin/Cr ratio was normal , unlikely to be renal disease. Her sinusitis was treated with Augmentin 875 bid for total of 10 days, 3 days in the hospital and 7 days post discharge. She was seen by Dr. Garcia, ENT and recommended to follow-up as outpatient. She also complained of constant migraine headache. MRI was negative for any acute pathology and she was referred to Dr. Washington for outpatient follow-up. Recommendations: Follow-up with Dr. Velázquez sole layer given newly diagnosed SVT now treated with cardizem 120mg po daily Follow-up with Dr. Garcia ENT for sinusitis and complete antibiotic course Follow-up with Dr. Washington for migraine headaches Follow-up with Dr. Gaming PCP for outpatient follow-up Medications: Cardizem 120mg po daily Augmentin 875 BID for 7 days Minutes to complete discharge: 45 Discharge Summary Reason For Visit: SVT NASAL CONGESTION Condition: Stable - Instructions Diet, Activity, Other Instructions: PLEASE FOLLOW UP WITH CARDIOLOGY, Dr. Velázquez, Neurology, for your headaches, ENT for sinusitis THIS WEEK. Take Augmentin 1 tablet twice daily for week. 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 RETURN TO THE EMERGENCY DEPARTMENT FOR ANY WORSENING SYMPTOMS. Referrals: Coni Washington MD [Staff Physician] - 1 Week Moris Velázquez MD [Staff Physician] - 1 Week Pato Garcia MD [Staff Physician] - 1 Week Gloria Ren MD [Primary Care Provider] - 1 Week BALTAZAR Gaming [phone] [Other] Disposition: HOME - Home Medications Comprehensive Discharge Medication List: Ambulatory Orders Diltiazem Cd [Cardizem Cd -] 120 mg PO DAILY #14 cap.cd.24h 05/20/16 Amox-Tr/K Cl [Augmentin 875-125mg Tablet -] 1 tab PO BID@0800,1730 #14 tablet Diltiazem Cd [Cardizem Cd -] 120 mg PO DAILY cap.cd.24h 05/23/16 This patient is new to me today: No Emergency Visit: No Critical Care patient: No - Discharge Referral Referred to [facility] Med [facility].C[facility] No
== END 2016-05-23 09:21 | disposition home or self-care (01) ==
LOC: JER 22:34 → JERBED 05-20 03:51 → UNDOADMOB 05-20 04:04 → J4W 05-20 05:07
PROVIDERS: ADMIT Internal Medicine; ATTEND Internal Medicine
DX: I47.1 Supraventricular tachycardia (principal); J45.909 Unspecified asthma, uncomplicated; E87.6 Hypokalemia; G43.909 Migraine, unspecified, not intractable, without status migrainosus; R10.9 Unspecified abdominal pain; R11.2 Nausea with vomiting, unspecified; R07.89 Other chest pain; M79.7 Fibromyalgia; R31.29 Other microscopic hematuria; J01.90 Acute sinusitis, unspecified; F14.10 Cocaine abuse, uncomplicated
CPT/HCPCS: 36415; 70551-TC; 71020-TC; 76705-TC; 76775-TC; 80053; 80061; 80307; 81003; 81015; 82043; 82550; 82553; 82570; 83036; 83721; 83735; 84100; 84443; 84484; 84703; 85025; 85379; 85610; 85651; 87324; 87449; 87633; 87804; 93005; 93010; 93306-TC; 93351; 99284-25; G0378

== ENCOUNTER 2016-07-25 21:17 | Emergency (ER) | payer OTHER ==
[2016-07-25 21:27] VITALS: TEMP 99.1; BMI 20.1
[2016-07-25] MEDS ORDERED: PANTOPRAZOLE SODIUM 40 MG in SODIUM CHLORIDE 100 ML IVPB ONE (22:16)
[2016-07-25] MEDS ORDERED: ONDANSETRON 4 MG/2 ML VIAL IVPUSH ONE (22:16)
[2016-07-25] MEDS ORDERED: SODIUM CHLORIDE 1,000 ML IV STA (22:16)
[2016-07-25 22:22] LABS: BASOPHIL 0.2 % (0-2.0); MCH 27.7 pg (25.7-33.7); MCHC 33.4 g/dl (32.0-36.0); MEAN PLT VOLUME 9.7 fl (7.5-11.1); NEUTROPHILS 83.9 % (42.8-82.8); PLATELET COUNT 235 K/MM3 (134-434); RDW 13.8 % (11.6-15.6); WHITE BLOOD COUNT 9.8 K/mm3 (4.0-10.0)
[2016-07-25] MEDS ORDERED: FAMOTIDINE 20 MG/50 ML IVPB 50 ML IVPB ONE ×2 (22:22→22:27)
--- NOTE | 2016-07-25 22:32 | PDOC ---
History of Present Illness - General Chief Complaint: Nausea/Vomiting Stated Complaint: NAUSEA/VOMITING Time Seen by Provider: 07/25/16 21:59 History Source: Patient Exam Limitations: No Limitations - History of Present Illness Travel History: No Initial Comments: 07/25/16 22:26 25yo Female patient presents to ED c/o nausea and vomiting w/ dizziness. Patient states symptoms have been ongoing for the past 4 months. She states she was seen for the same symptoms about 1 month ago, had a follow up Endoscopy with Dr. Eugenio Ramos and was diagnosed with H. Pylori (Clarithromycin/ Amoxicillin, Omeprazole combination treatment). Patient states today she experienced fever 102.2, epigastric abd pain, and constant nausea/vomiting. Patient stated she has no had a full meal in 4 months with rapid weight loss. LNMP: July 13, 2016. Denies any other complaints. After examining patient; she c/o hive and itching to arms and face. Upon evaluation, there was hives noted on patients' left arm but not on her face. Patient requested to not have AMINA and wanted MD. Timing/Duration: reports: constant Quality: reports: moderate Abdominal Pain Onset Location: reports: epigastric Pain Radiation: reports: no radiation Activities at Onset: reports: no specific activity Treatment Prior to Arrive: worse with: analgesics, antacids, cold pack, heat, laxative, enema, other Aggravating Factors: worse with: None, Defecation, Eating, Emotional upset, Exertion, Egan, Movement, Voiding, Change in position Alleviating Factors: worse with: None, Belching, Shallow Breathing, Defecation, Eating, Holding Breath, Passing Gas, Change in Position, Rest, Voiding, Vomiting Past History - Travel Traveled outside of the country in the last 30 days: No Close contact w/someone who was outside of country & ill: No - Past Medical History Allergies/Adverse Reactions: Allergies Allergy/AdvReac Type Severity Reaction Status Date / Time No Known Allergies Allergy Verified 07/25/16 21:24 Home Medications: Ambulatory Orders NK [No Known Home Medication] 07/25/16 Anemia: Yes Asthma: No Cancer: No Cardiac Disorders: Yes (svt) CVA: No COPD: No CHF: No Dementia: No Diabetes: No GI Disorders: No Disorders: No HTN: No Hypercholesterolemia: No Liver Disease: No Seizures: No Thyroid Disease: No - Surgical History Orthopedic Surgery: Yes (Left kknee arthroscopic sx) - Reproductive History (#): 1 Para: 1 Spontaneous : 0 - Immunization History Immunization Up to Date: Yes - Psycho/Social/Smoking Cessation Hx Anxiety: No Suicidal Ideation: No Smoking Status: No Smoking History: Smoker current status UNK Have you smoked in the past 12 months: No Number of Cigarettes Smoked Daily: 0 Hx Alcohol Use: No Drug/Substance Use Hx: No Substance Use Type: None Hx Substance Use Treatment: No Abd/GI Specific PMHX - Complaint Specific PMHX Colitis: No Diverticulitis: No Gall Bladder Disease: No GERD: No Hepatitis: No Irritable Bowel Synd (IBS): No Pancreatitis: No GI Ulcer Disease: No Review of Systems - Review of Systems Able to Perform ROS?: Yes Is the patient limited Arabic proficient: No Constitutional: Yes: Fever, Unintentional Wgt. Loss. No: Chills Respiratory: No: Cough, Shortness of Breath, Stridor, Wheezing, Productive cough Cardiac (ROS): No: Chest Pain, Lightheadedness, Palpitations, Syncope, Chest Tightness ABD/GI: Yes: Nausea, Poor Fluid Intake, Vomiting. No: Constipated, Diarrhea, Poor Appetite, Rectal Bleeding : No: Burning, Dysuria, Flank Pain, Hematuria Musculoskeletal: No: Back Pain Integumentary: No: Bruising, Erythema, Rash, Sweating Neurological: No: Headache, Seizure, Tremors, Weakness, Ataxia, Dizziness All Other Systems: Reviewed and Negative *Physical Exam - Vital Signs Last Vital Signs Temp Pulse Resp BP Pulse Ox 99.1 F 110 H 18 107/70 98 07/25/16 21:25 07/25/16 21:25 07/25/16 21:25 07/25/16 21:25 07/25/16 21:25 - Physical Exam General Appearance: Yes: Nourished, Appropriately Dressed. No: Apparent Distress, Mild Distress, Moderate Distress, Severe Distress HEENT: positive: EOMI, AMY, Normal ENT Inspection, Normal Voice, Symmetrical, TMs Normal, Pharynx Normal, Pharyngeal Erythema (Mild). negative: Nasal Congestion, Rhinorrhea, TM Bulging, TM Dull, TM Erythema Neck: positive: Trachea midline, Normal Thyroid, Supple. negative: Lymphadenopathy (R), Lymphadenopathy (L) Respiratory/Chest: positive: Lungs Clear, Normal Breath Sounds. negative: Respiratory Distress, Accessory Muscle Use, Labored Respiration, Rapid RR, Decreased Breath Sounds, Crackles, Rales, Rhonchi, Stridor, Wheezing Cardiovascular: positive: Regular Rhythm, Regular Rate. negative: Edema Gastrointestinal/Abdominal: positive: Normal Bowel Sounds, Flat, Soft, Tenderness (Epigastric -Mid abdominal). negative: Distended, Guarding, Rebound Musculoskeletal: positive: Normal Inspection. negative: CVA Tenderness Extremity: positive: Normal Capillary Refill, Normal Inspection, Normal Range of Motion. negative: Pedal Edema, Swelling, Calf Tenderness Integumentary: positive: Normal Color, Dry, Warm. negative: Cold, Clammy, Diaphoresis, Moist, Hives Neurologic: positive: customer service representative II-XII NML intact, Fully Oriented, Alert, Normal Mood/ Affect, Normal Response, Motor Strength 08/08 ED Treatment Course - LABORATORY CBC & Chemistry Diagram: 07/25/16 22:00 07/25/16 22:12
[2016-07-25 22:53] LABS: ALBUMIN 4.6 g/dl (3.4-5.0); ANION GAP 9 (8-16); CALCIUM 9.5 mg/dL (8.5-10.1); CO2 28 mmol/L (21-32); CREATININE 0.6 mg/dL (0.55-1.02); GLUCOSE,RANDOM 97 mg/dL (74-106); SGOT/AST 16 U/L (15-37); SGPT/ALT 21 U/L (12-78)
[2016-07-25] MEDS ORDERED: PANTOPRAZOLE SODIUM 100 ML IVPB ONE (22:53)
[2016-07-25] MEDS ORDERED: ONDANSETRON 4 MG/2 ML VIAL ONE (22:53)
[2016-07-25 22:55] LABS: ALK PHOS 54 U/L (45-117); BILIRUBIN,TOTAL 0.6 mg/dL (0.2-1.0); TOT PROT 8.2 g/dl (6.4-8.2)
[2016-07-25] MEDS ORDERED: METOCLOPRAMIDE HCL INJECTION 10 MG/2 ML VIAL IVPUSH ONE (23:17)
[2016-07-25] MEDS ORDERED: METOCLOPRAMIDE HCL INJECTION 10 MG/2 ML VIAL ONE (23:22)
[2016-07-26] MEDS ORDERED: SODIUM CHLORIDE 1,000 ML IV STA (00:25)
--- NOTE | 2016-07-26 00:26 | PDOC ---
*Physical Exam - Vital Signs Last Vital Signs Temp Pulse Resp BP Pulse Ox 99.1 F 110 H 18 107/70 98 07/25/16 21:25 07/25/16 21:25 07/25/16 21:25 07/25/16 21:25 07/25/16 21:25 - Physical Exam Comments: 07/26/16 00:25 The patient was examined by JUAN Araujo under my direct supervision. I personally evaluated the patient. I concur with the above findings and the plan of care. 07/26/16 01:44 Patient is a 25-year-old female with history of H. pylori gastritis ( noncompliant with her medication regimen) who presents with recurrent episodes of nausea and intractable, nonbloody, nonbilious vomiting. Patient complains of intermittent epigastric abdominal pain, denies fevers/chills/melena/bright red blood per rectum. Patient had in the past been diagnosed with H. pylori gastritis but failed to a complete her medication regimen due to persistent nausea and vomiting. In the ER, patient is awake and alert, initially tachycardic with no focal abdominal tenderness, no evidence of scleral icterus or pale conjunctiva. CBC/CMP within normal limit. UA reveals 1+ ketones only. Patient had received IV Zofran and Reglan, as well as 2 L of normal saline. Patient was able to tolerate juice and crackers. Will discharge with Zofran sublingually with instructions to complete H. pylori treatment regiment and follow-up with GI as needed. ED Treatment Course - LABORATORY CBC & Chemistry Diagram: 07/25/16 22:00 07/25/16 22:12 - ADDITIONAL ORDERS Additional order review: Laboratory Results 07/25/16 07/25/16 07/25/16 22:33 22:12 22:00 Sodium 136 Potassium 3.8 Chloride 99 D Carbon Dioxide 28 Anion Gap 9 BUN 12 D Creatinine 0.6 Creat Clearance w eGFR > 60 Random Glucose 97 D Calcium 9.5 D Total Bilirubin 0.6 D AST 16 D ALT 21 D Alkaline Phosphatase 54 D Total Protein 8.2 D Albumin 4.6 D Total Amylase 84 Lipase 184 Serum , Qual Negative 07/25/16 22:00 RBC 4.82 D MCV 83.0 MCHC 33.4 RDW 13.8 D MPV 9.7 Neutrophils % 83.9 H D Lymphocytes % 11.5 D Monocytes % 4.4 Eosinophils % 0.0 D Basophils % 0.2 - Medications Given in the ED: ED Medications Discontinued Medications Generic Name Dose Route Start Last Admin Trade Name Benny PRN Reason Stop Dose Admin Diphenhydramine HCl 12.5 mg 07/25/16 22:20 07/25/16 23:06 Benadryl Injection - IVPUSH 07/25/16 22:21 12.5 mg ONCE ONE Administration Pantoprazole Sodium 40 mg/ 100 mls @ 200 mls/hr 07/25/16 22:16 07/25/16 23:06 Sodium Chloride IVPB 07/25/16 22:45 200 mls/hr ONCE ONE Administration Sodium Chloride 1,000 mls @ 1,000 mls/hr 07/25/16 22:16 07/25/16 22:39 Normal Saline - IV 07/25/16 23:15 1,000 mls/hr ASDIR STA Administration Famotidine/Sodium Chloride 50 mls @ 100 mls/hr 07/25/16 22:22 07/25/16 22:41 Pepcid 20 Mg Premixed Ivpb - IVPB 07/25/16 22:51 100 mls/hr ONCE ONE Administration Metoclopramide HCl 10 mg 07/25/16 23:17 07/25/16 23:24 Reglan Injection - IVPUSH 07/25/16 23:18 10 mg ONCE ONE Administration Ondansetron HCl 4 mg 07/25/16 22:16 07/25/16 23:06 Zofran Injection IVPUSH 07/25/16 22:17 4 mg ONCE ONE Administration *DC/Admit/Observation/Transfer Diagnosis at time of Disposition: Helicobacter pylori gastritis Nausea and vomiting Qualifiers: Vomiting type: unspecified Vomiting Intractability: non-intractable Qualified Code(s): R11.2 - Nausea with vomiting, unspecified - Discharge Dispostion Disposition: HOME Condition at time of disposition: Stable - Referrals Referrals: Gloria Ren MD [Primary Care Provider] - - Patient Instructions Printed Discharge Instructions: DI for Nausea -- Adult, DI for Vomiting -- Adult, DI for Gastritis
[2016-07-26 01:37] LABS: URINE APPEARANCE CLEAR; URINE BILIRUBIN NEGATIVE (NEGATIVE); URINE BLOOD NEGATIVE (NEGATIVE); URINE COLOR STRAW; URINE GLUCOSE (UA) NEGATIVE (NEGATIVE); URINE KETONE 1+ (NEGATIVE); URINE LEUK ESTERASE NEGATIVE (NEGATIVE); URINE NITRITE NEGATIVE (NEGATIVE); URINE PROTEIN NEGATIVE (NEGATIVE); URINE UROBILINOGEN NEGATIVE E.U./dl (0.2-1.0)
[2016-07-26 01:57] VITALS: BP 102/53; PULSE 84
== END 2016-07-26 01:58 | disposition home or self-care (01) ==
LOC: JER 21:17
PROC: 3E0337Z Introduction of Electrolytic and Water Balance Substance into Peripheral Vein, Percutaneous Approach (ICD-10-PCS; principal; 2016-07-25)
PROC: 3E033GC Introduction of Other Therapeutic Substance into Peripheral Vein, Percutaneous Approach (ICD-10-PCS; 2016-07-25)
PROC: 3E033GC Introduction of Other Therapeutic Substance into Peripheral Vein, Percutaneous Approach (ICD-10-PCS; 2016-07-25)
PROC: 3E033GC Introduction of Other Therapeutic Substance into Peripheral Vein, Percutaneous Approach (ICD-10-PCS; 2016-07-25)
DX: K29.60 Other gastritis without bleeding (principal); B96.81 Helicobacter pylori [H. pylori] as the cause of diseases classified elsewhere
CPT/HCPCS: 36415; 80053; 81003; 82150; 83690; 84703; 85025; 96361; 96365; 96367; 96374; 96375; 99283-25

== ENCOUNTER 2017-01-17 10:51 | Emergency (ER) | payer OTHER ==
[2017-01-17 11:01] VITALS: BP 101/70; PULSE 95; TEMP 98.6; BMI 20.2
[2017-01-17] MEDS ORDERED: PANTOPRAZOLE SODIUM 40 MG in SODIUM CHLORIDE 100 ML IVPB ONE (12:10)
[2017-01-17] MEDS ORDERED: ONDANSETRON 4 MG/2 ML VIAL IVPUSH ONE (12:10)
[2017-01-17] MEDS ORDERED: SODIUM CHLORIDE 1,000 ML IV STA ×2 (12:10→13:59)
[2017-01-17] MEDS ORDERED: ONDANSETRON 4 MG/2 ML VIAL ONE (12:15)
[2017-01-17] MEDS ORDERED: PANTOPRAZOLE SODIUM 100 ML IVPB ONE (12:15)
[2017-01-17 12:35] LABS: BASOPHIL 0.4 % (0-2.0); EOSINOPHIL 0.1 % (0-4.5); MCH 27.2 pg (25.7-33.7); MCHC 32.9 g/dl (32.0-36.0); MEAN CELL VOLUME 82.5 fl (80-96); MEAN PLT VOLUME 8.9 fl (7.5-11.1); NEUTROPHILS 75.2 % (42.8-82.8); PLATELET COUNT 273 K/MM3 (134-434); RDW 14.1 % (11.6-15.6); WHITE BLOOD COUNT 7.4 K/mm3 (4.0-10.0)
--- NOTE | 2017-01-17 13:02 | PDOC ---
History of Present Illness - General Chief Complaint: Nausea/Vomiting Stated Complaint: NAUSEA/VOMITING Time Seen by Provider: 01/17/17 11:18 History Source: Patient Exam Limitations: No Limitations - History of Present Illness Travel History: No Initial Comments: 01/17/17 12:02 26-year-old female presents with continual nausea, weight loss, and upper abdominal pain. Patient states for the past year she has seen a credit intern at [facility] who performed an endoscopy, a capsule endoscopy, including testing for H. pylori which she was diagnosed with but when treated with antibiotic patient could not tolerate the antibiotics and discontinued them. Patient was also prescribed PPIs which she states was unable to tolerate secondary to vomiting. Patient states has not seen the [facility] electronic warfare officer in approximately one month and to 2 symptoms above decided come to the nearest emergency room. Patient denies fever, chills, bloody stools, blood in emesis, change in urine output, rash, chest pain, or thyroid disorders. Patient also denies drug use or alcohol use. Timing/Duration: reports: constant Quality: reports: moderate, burning, cramping Pain Radiation: denies: no radiation Aggravating Factors: improves with: Eating Alleviating Factors: worse with: None Past History - Travel Traveled outside of the country in the last 30 days: No Close contact w/someone who was outside of country & ill: No - Past Medical History Allergies/Adverse Reactions: Allergies Allergy/AdvReac Type Severity Reaction Status Date / Time No Known Allergies Allergy Verified 01/17/17 11:01 Home Medications: Ambulatory Orders Ondansetron HCl [Zofran] 4 mg PO TID PRN #12 tablet 01/17/17 Pantoprazole Sodium [Protonix] 40 mg PO DAILY #30 tablet. 01/17/17 Anemia: Yes Asthma: No Cancer: No Cardiac Disorders: Yes (svt) CVA: No COPD: No CHF: No Dementia: No Diabetes: No GI Disorders: No Disorders: No HTN: No Hypercholesterolemia: No Liver Disease: No Seizures: No Thyroid Disease: No - Surgical History Orthopedic Surgery: Yes (Left kknee arthroscopic sx) - Reproductive History (#): 1 Para: 1 Spontaneous : 0 - Immunization History Immunization Up to Date: Yes - Suicide/Smoking/Psychosocial Hx Smoking Status: No Smoking History: Smoker current status UNK Have you smoked in the past 12 months: No Number of Cigarettes Smoked Daily: 0 Information on smoking cessation initiated: No Hx Alcohol Use: No Drug/Substance Use Hx: No Substance Use Type: None Hx Substance Use Treatment: No Patient Lives Alone: No Lives with/in: spouse/SO Abd/GI Specific PMHX - Complaint Specific PMHX Colitis: No Diverticulitis: No Gall Bladder Disease: No Hepatitis: No Irritable Bowel Synd (IBS): No Pancreatitis: No GI Ulcer Disease: Yes Review of Systems - Review of Systems Able to Perform ROS?: Yes Constitutional: Yes: Loss of Appetite, Weakness, Unintentional Wgt. Loss HEENTM: No: Symptoms Reported Respiratory: No: Symptoms reported Cardiac (ROS): No: Symptoms Reported ABD/GI: Yes: Nausea, Poor Appetite, Poor Fluid Intake, Vomiting, Indigestion. No: Blood Streaked Bowels, Constipated, Diarrhea, Rectal Bleeding : No: Symptoms Reported Musculoskeletal: No: Symptoms Reported Integumentary: No: Symptoms Reported Neurological: Yes: Weakness (generalized) Endocrine: No: Symptoms Reported Hematologic/Lymphatic: No: Symptoms Reported *Physical Exam - Vital Signs Last Vital Signs Temp Pulse Resp BP Pulse Ox 98.6 F 95 H 18 101/70 100 01/17/17 10:55 01/17/17 10:55 01/17/17 10:55 01/17/17 10:55 01/17/17 10:55 - Physical Exam General Appearance: Yes: Appropriately Dressed, Thin. No: Apparent Distress HEENT: positive: EOMI, AMY, TMs Normal, Pharynx Normal (dry oral cavity) Neck: positive: Normal Thyroid, Supple Respiratory/Chest: positive: Lungs Clear, Normal Breath Sounds. negative: Respiratory Distress, Accessory Muscle Use Cardiovascular: positive: Regular Rhythm, Regular Rate. negative: Murmur Gastrointestinal/Abdominal: positive: Soft, Tenderness (epigastric. No lower quadrant or right upper quadrant tenderness) Musculoskeletal: negative: CVA Tenderness Extremity: positive: Normal Capillary Refill. negative: Pedal Edema Integumentary: positive: Dry, Warm, Moist Neurologic: positive: Normal Mood/Affect, Motor Strength 5/5 ED Treatment Course - LABORATORY CBC & Chemistry Diagram: 01/17/17 12:13 01/17/17 12:19 - ADDITIONAL ORDERS Additional order review: 01/17/17 12:13 RBC 4.93 MCV 82.5 MCHC 32.9 RDW 14.1 MPV 8.9 Neutrophils % 75.2 Lymphocytes % 18.3 D Monocytes % 6.0 Eosinophils % 0.1 D Basophils % 0.4 - Medications Given in the ED: ED Medications Discontinued Medications Generic Name Dose Route Start Last Admin Trade Name Benny PRN Reason Stop Dose Admin Pantoprazole Sodium 40 mg/ 100 mls @ 200 mls/hr 01/17/17 12:10 01/17/17 12:27 Sodium Chloride IVPB 01/17/17 12:39 200 mls/hr ONCE ONE Administration Ondansetron HCl 4 mg 01/17/17 12:10 01/17/17 12:27 Zofran Injection IVPUSH 01/17/17 12:11 4 mg ONCE ONE Administration Medical Decision Making - Medical Decision Making 01/17/17 13:06 Patient with continued weakness, decreased appetite, unexplained weight loss. Patient with recent diagnosis of H. pylori could not complete treatment and is unable to take a PPI secondary to vomiting. Patient exam appeared thin without muscle wasting. Patient had epigastric tenderness on exam patient concerning for gastritis/GERD, less likely pancreatitis and cholecystitis. Patient will be checked for magnesium including other electrolytes due to poor diet with likely lateral imbalance is noted. Patient also will have a urine collected along with a urine . Patient ordered for liter of normal saline and will consider additional testing once labs have resulted. Patient to be reevaluated shortly. 01/17/17 14:46 Patient states nausea has subsided with moderate relief of epigastric pain. Patient states cannot wait for the second bag of IV fluid and does not have the urge to urinate presently. Patient states has a personal matter to deal with. Patient will be discharged home and a serum was sent. Laboratory Tests 01/17/17 01/17/17 12:13 12:19 WBC 7.4 Hgb 13.4 Hct 40.7 Plt Count 273 Sodium 141 Potassium 4.7 D Chloride 104 Carbon Dioxide 27 Anion Gap 10 BUN 15 D Creatinine 0.7 Random Glucose 88 Calcium 10.0 Magnesium 2.3 Total Bilirubin 0.5 AST 19 Alkaline Phosphatase 46 Lipase 79 01/17/17 15:27 Laboratory Tests 01/17/17 14:49 Serum , Qual Negative *DC/Admit/Observation/Transfer Diagnosis at time of Disposition: Epigastric abdominal pain Nausea & vomiting Qualifiers: Vomiting type: unspecified Vomiting Intractability: non-intractable Qualified Code(s): R11.2 - Nausea with vomiting, unspecified - Discharge Dispostion Disposition: HOME Condition at time of disposition: Improved - Prescriptions Prescriptions: Pantoprazole Sodium [Protonix] 40 mg PO DAILY #30 tablet. Ondansetron HCl [Zofran] 4 mg PO TID PRN #12 tablet PRN Reason: Nausea And/Or Vomiting - Referrals Referrals: Gloria Ren MD [Primary Care Provider] - - Patient Instructions Printed Discharge Instructions: DI for Nausea -- Adult, DI for Epigastric Pain Additional Instructions: I prescribed medication for the nausea and for her epigastric pain. Please avoid eating acidy, spicy foods such as pizza, fried foods, and Swedish food. Please follow-up with your primary care physician and/or credit intern to discuss today's visit and also discuss management of H. pylori
[2017-01-17 13:07] LABS: ALBUMIN 3.9 g/dl (3.4-5.0); ANION GAP 10 (8-16); CO2 27 mmol/L (21-32); CREATININE 0.7 mg/dL (0.55-1.02); GLUCOSE,RANDOM 88 mg/dL (74-106); MAGNESIUM 2.3 mg/dL (1.8-2.4); SGOT/AST 19 U/L (15-37); SGPT/ALT 23 U/L (12-78)
[2017-01-17 13:09] LABS: ALK PHOS 46 U/L (45-117); BILIRUBIN,TOTAL 0.5 mg/dL (0.2-1.0); TOT PROT 7.6 g/dl (6.4-8.2)
[2017-01-17] MEDS ORDERED: ACETAMINOPHEN 325 MG TABLET (FP) PO ONE (14:08)
[2017-01-17] MEDS ORDERED: ACETAMINOPHEN 325 MG TABLET (FP) ONE (14:17)
== END 2017-01-17 14:58 | disposition home or self-care (01) ==
LOC: JER 10:51 → JERFT 10:51 → JER 14:58
PROC: 3E0337Z Introduction of Electrolytic and Water Balance Substance into Peripheral Vein, Percutaneous Approach (ICD-10-PCS; principal; 2017-01-17)
PROC: 3E033GC Introduction of Other Therapeutic Substance into Peripheral Vein, Percutaneous Approach (ICD-10-PCS; 2017-01-17)
DX: R10.13 Epigastric pain (principal)
CPT/HCPCS: 36415; 80053; 83690; 83735; 84703; 85025; 96361; 96365; 96375; 99283-25

== ENCOUNTER 2017-07-14 12:05 | Emergency (ER) | payer OTHER ==
[2017-07-14 12:13] VITALS: BMI 19.9
[2017-07-14] MEDS ORDERED: ACETAMINOPHEN 1000 MG/100 ML VIAL (NON FORMULARY) IVPB ONE (12:30)
--- NOTE | 2017-07-14 12:31 | PDOC ---
History of Present Illness - General Chief Complaint: Pain Stated Complaint: PAIN (PCP SENT) ABD PAIN Time Seen by Provider: 07/14/17 12:19 History Source: Patient Exam Limitations: No Limitations - History of Present Illness Initial Comments: 07/14/17 12:29 The patient is a 26F with no PMH who presents to the ER with abdominal pain. The patient states that her abdominal pain started 4 days ago, is located in her RLQ, was initially intermittent but has become constant today, does not radiate. She was evaluated by an UC and her PCP who are both concerned for appendicitis and sent her to the ER for evaluation. The patient states that she has felt intermittent fevers, nausea and vomiting x6-7 NBNB, but denies vaginal bleeding and discharge. LMP June 17. Past History - Past Medical History Allergies/Adverse Reactions: Allergies Allergy/AdvReac Type Severity Reaction Status Date / Time No Known Allergies Allergy Verified 07/14/17 12:14 Home Medications: Ambulatory Orders Ondansetron HCl [Zofran] 4 mg PO TID PRN #12 tablet 01/17/17 Pantoprazole Sodium [Protonix] 40 mg PO DAILY #30 tablet. 01/17/17 Anemia: Yes Asthma: No Cancer: No Cardiac Disorders: Yes (svt) CVA: No COPD: No CHF: No DVT: No Dementia: No Diabetes: No GI Disorders: No Disorders: No HTN: No Hypercholesterolemia: No Liver Disease: No Seizures: No Thyroid Disease: No - Surgical History Orthopedic Surgery: Yes (Left kknee arthroscopic sx) - Reproductive History (#): 1 Para: 1 Spontaneous : 0 - Immunization History Immunization Up to Date: Yes - Suicide/Smoking/Psychosocial Hx Smoking Status: No Smoking History: Smoker current status UNK Have you smoked in the past 12 months: No Number of Cigarettes Smoked Daily: 0 Information on smoking cessation initiated: No Hx Alcohol Use: No Drug/Substance Use Hx: No Substance Use Type: None Hx Substance Use Treatment: No Review of Systems - Review of Systems Able to Perform ROS?: Yes Comments:: 07/14/17 12:35 GENERAL/CONSTITUTIONAL: No fever or chills. No weakness. HEAD, EYES, EARS, NOSE AND THROAT: No change in vision. No ear pain or discharge. No sore throat. CARDIOVASCULAR: No chest pain, palpitations, or lightheadedness. RESPIRATORY: No cough, wheezing, shortness of breath, or hemoptysis. GASTROINTESTINAL: Positive for nausea, vomiting, anorexia, and abdominal pain. GENITOURINARY: No dysuria, frequency, hematuria, or change in urination. MUSCULOSKELETAL: No joint or muscle swelling or pain. No neck or back pain. SKIN: No rash or lesions. NEUROLOGIC: No headache, numbness, tingling, weakness, loss of consciousness, or change in strength/sensation. ENDOCRINE: No increased thirst. No abnormal weight change. HEMATOLOGIC/LYMPHATIC: No anemia, easy bleeding, or history of blood clots. ALLERGIC/IMMUNOLOGIC: No hives or skin allergy. Is the patient limited Tajik proficient: No *Physical Exam - Vital Signs Last Vital Signs Temp Pulse Resp BP Pulse Ox 99 F 104 H 17 101/66 100 07/14/17 12:07 07/14/17 12:07 07/14/17 12:07 07/14/17 12:07 07/14/17 12:07 - Physical Exam Comments: 07/14/17 12:36 GENERAL: Well developed, well nourished. Awake and alert. No acute distress. HEENT: Normocephalic, atraumatic. Hearing grossly normal. Moist mucous membranes. PERRLA, EOMI. No conjunctival pallor. Sclera are non-icteric. NECK: Supple. Full ROM. No JVD. CARDIOVASCULAR: Regular rate and rhythm. No murmurs, rubs, or gallops. PULMONARY: No evidence of respiratory distress. Lungs clear to auscultation bilaterally. No wheezing, rales or rhonchi. ABDOMINAL: Soft. Tender to deep palpation in RLQ with guarding. GENITOURINARY: R CVA tenderness. PELVIC: No CMT, no adnexal tenderness, external genitilia. Cervix contained punctate erythematous lesions. MUSCULOSKELETAL: Normal range of motion at all joints. No bony deformities or tenderness. EXTREMITIES: No cyanosis. No clubbing. No edema. No calf tenderness. SKIN: Warm and dry. Normal capillary refill. No rashes. No jaundice. NEUROLOGICAL: Alert, awake, appropriate. Cranial nerves 2-12 intact. Normal speech. Gait is normal without ataxia. PSYCHIATRIC: Cooperative. Good eye contact. Appropriate mood and affect. ED Treatment Course - LABORATORY CBC & Chemistry Diagram: 07/14/17 12:34 07/14/17 12:34 - RADIOLOGY Radiology Studies Ordered: Category Date Time Status ABDOMEN US -LIMITED [US] Stat Ultrasound 07/14/17 12:27 Ordered TRANSVAGINAL ULTRASOUND US [US] Stat Ultrasound 07/14/17 12:27 Ordered Medical Decision Making - Medical Decision Making 07/14/17 12:37 The patient is a 26F with no PMH who presents with RLQ pain. I am suspicious for appendicitis vs torsion vs ectopic. Labs and imaging ordered including TV US and RLQ US to visualize appendix. Pending labs and imaging. 07/14/17 14:03 US imaging negative for torsion and appendicitis on US. IMPRESSION: 1. Normal pelvic sonogram with no evidence of ovarian torsion or acute pathology. 2. No sonographic evidence of acute appendicitis. Please see above discussion. Will have CTAP with IV contrast. 07/14/17 16:28 CTAP negative. IMPRESSION: Normal CT scan of the abdomen and pelvis with no evidence of appendicitis or acute pathology. I have discussed these results with the patient. The patient states she feels better with the IVF but still feels the pain. I have discussed return instructions with the patient. *DC/Admit/Observation/Transfer Diagnosis at time of Disposition: Abdominal pain Qualifiers: Abdominal location: right lower quadrant Qualified Code(s): R10.31 - Right lower quadrant pain - Discharge Dispostion Disposition: HOME Condition at time of disposition: Stable Admit: No - Referrals Referrals: Gloria Ren MD [Primary Care Provider] - - Patient Instructions Printed Discharge Instructions: DI for Abdominal Pain-Adult Additional Instructions: Please return to the ER if you have any signs or symptoms of chest pain, shortness of breath, uncontrollable fever, chills, nausea, vomiting, numbness, tingling, or weakness in any part of your body, changes in vision, or slurred speech. Please follow up with your primary care physician in 2-3 days. Please follow with your tax collection coordinator as soon as possible. Please return to the ER if symptoms persist, worsen, or new symptoms arise. - Post Discharge Activity
[2017-07-14] MEDS ORDERED: ACETAMINOPHEN INJECTION 100 ML IVPB ONE (12:32)
[2017-07-14 12:46] LABS: BASO % 0.8 % (0-2.0); EOS % 3.3 % (0-4.5); HEMATOCRIT 38.9 % (32.4-45.2); HEMOGLOBIN 13.2 GM/dL (10.7-15.3); LYMPH % 30.1 % (8-40); MCH 29.5 pg (25.7-33.7); MCHC 33.8 g/dl (32.0-36.0); MEAN CELL VOLUME 87.1 fl (80-96); MONO % 9.6 % (3.8-10.2); NEUT % 56.2 % (42.8-82.8); PLATELET COUNT 248 K/MM3 (134-434); RBC 4.47 M/mm3 (3.60-5.2); RDW 12.4 % (11.6-15.6); WHITE BLOOD COUNT 4.6 K/mm3 (4.0-10.0)
[2017-07-14 12:48] LABS: HCG,QUALITATIVE URINE NEGATIVE
[2017-07-14 12:52] LABS: URINE APPEARANCE CLEAR; URINE BILIRUBIN NEGATIVE (<2.0 mg/dL); URINE BLOOD NEGATIVE (NEGATIVE); URINE COLOR YELLOW; URINE GLUCOSE (UA) NEGATIVE (NEGATIVE); URINE KETONE TRACE (NEGATIVE); URINE LEUK ESTERASE NEGATIVE (NEGATIVE); URINE NITRITE NEGATIVE (NEGATIVE); URINE PROTEIN NEGATIVE (NEGATIVE)
[2017-07-14 13:11] LABS: ALBUMIN 3.9 g/dl (3.4-5.0); ANION GAP 8 (8-16); BLOOD UREA NITROGEN 13 mg/dL (7-18); CALCIUM 9.2 mg/dL (8.5-10.1); CHLORIDE 105 mmol/L (98-107); CO2 28 mmol/L (21-32); CREATININE 0.7 mg/dL (0.55-1.02); GLUCOSE,RANDOM 65 mg/dL (74-106); POTASSIUM 4.2 mmol/L (3.5-5.1); SGOT/AST 13 U/L (15-37); SGPT/ALT 13 U/L (12-78); SODIUM 141 mmol/L (136-145)
[2017-07-14] MEDS ORDERED: SODIUM CHLORIDE 0.9% 1000 ML INFUS.BAG IV ONE (13:12)
[2017-07-14 13:13] LABS: ALK PHOS 51 U/L (45-117); BILIRUBIN,TOTAL 0.4 mg/dL (0.2-1.0); TOT PROT 7.1 g/dl (6.4-8.2)
[2017-07-14 13:25] LABS: INR 1.04 (0.82-1.09); PROTHROMBIN TIME (PATIENT) 11.7 SEC (9.98-11.88)
--- NOTE | 2017-07-14 13:29 | PDOC ---
Attending Attestation - Resident Resident Name: Gómez Mendozaony - ED Attending Attestation I have performed the following: I have examined & evaluated the patient, The case was reviewed & discussed with the resident, I agree w/resident's findings & plan, Exceptions are as noted - HPI HPI: 07/14/17 13:24 Healthy 26-year-old female LMP 3/14 p/w 5d progressive RLQ pain with nausea, no diarrhea/[employer]/ complaints. PMD concerned for appendicitis and prompted pt to come to ED but she only comes today. + fever at home up to 103 yesterday. no prior abd surgeries. Had h/o ovarian cyst during . - Physicial Exam PE: 07/14/17 13:28 afebrile. Well-appearing. Abdomen is soft/nondistended. Tender with guarding and referred pain to the right lower quadrant around McBurney's point, no CVA tenderness. No pelvic masses or tenderness. - Medical Decision Making 07/14/17 13:28 Patient seen and evaluated with the resident. I agree with the overall evaluation, assessment, and management with the following summary of visit: Healthy 26-year-old female with persistent right lower quadrant pain for 4-5 days associated with fever and focal peritoneal findings in the right lower quadrant. Presentation could be consistent with appendicitis, rule out renal stone, rule out ovarian pathology. Labs, urinalysis Ultrasounds likely followed by CAT scan Pain control Reassess 07/14/17 17:50 labs, ua, sono, ctap all wnl. pt with normal VS, ambulating steadily. will treat empirically for PID given fever and lower abd pain in female with otherwise negative workup. culture sent, treated empirically with abx, understands return criteria.
[2017-07-14] MEDS ORDERED: morphine CARPU-JECT 4 MG/1 ML DISP.SYRIN IVPUSH ONE (14:55)
[2017-07-14] MEDS ORDERED: MORPHINE SULFATE 10 MG/1 ML *VIAL ONE (14:56)
[2017-07-14] MEDS ORDERED: AZITHROMYCIN 1 GM PACKET PO ONE (17:52)
[2017-07-14] MEDS ORDERED: AZITHROMYCIN 250 MG TABLET ONE (18:03)
[2017-07-14] MEDS ORDERED: LIDOCAINE HCL 1%, 10 MG/ML (20ML VIAL) ONE (18:03)
[2017-07-14] MEDS ORDERED: cefTRIAXone SODIUM 1 GM VIAL ONE (18:04)
[2017-07-14 18:22] VITALS: BP 113/71; PULSE 89; TEMP 98.5
== END 2017-07-14 18:15 | disposition home or self-care (01) ==
LOC: JER 12:05
PROC: 3E02329 Introduction of Other Anti-infective into Muscle, Percutaneous Approach (ICD-10-PCS; principal; 2017-07-14)
PROC: 3E033NZ Introduction of Analgesics, Hypnotics, Sedatives into Peripheral Vein, Percutaneous Approach (ICD-10-PCS; 2017-07-14)
PROC: 3E033NZ Introduction of Analgesics, Hypnotics, Sedatives into Peripheral Vein, Percutaneous Approach (ICD-10-PCS; 2017-07-14)
DX: N73.9 Female pelvic inflammatory disease, unspecified (principal)
CPT/HCPCS: 36415; 74177-TC; 76830-TC; 76856-TC; 80053; 81003; 84703; 85025; 85610; 86850; 86900; 86901; 87086; 96372; 96374; 96375; 99284-25; J0131; J7030

== ENCOUNTER 2017-10-22 03:10 | Emergency (ER) | payer OTHER ==
[2017-10-22 03:32] VITALS: BMI 20.9
[2017-10-22 04:14] LABS: HCG,QUALITATIVE URINE POSITIVE
--- NOTE | 2017-10-22 04:17 | PDOC ---
History of Present Illness - General Chief Complaint: Injury Stated Complaint: LIP INJURY - History of Present Illness Initial Comments: 10/22/17 04:12 27 yo F with h/o MVP who p/w with tooth avulsion s/p mechanical fall. 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 Patient states that she landed on her face and now with "chipped tooth and upper lip swelling." Denies LOC, but endorses diffuse, dull headache. Patient denies N/V, neck pain, vision change, F/C, CP, SOB, urinary complaints, abdominal pain, diarrhea, constipation, lightheadedness, weakness, sensory changes. PMHx: as noted above ROS: as noted SHx: Denies IVDA Allergies: NKDA Past History - Past Medical History Allergies/Adverse Reactions: Allergies Allergy/AdvReac Type Severity Reaction Status Date / Time No Known Allergies Allergy Verified 10/22/17 03:31 Home Medications: Ambulatory Orders Ondansetron HCl [Zofran] 4 mg PO TID PRN #12 tablet 01/17/17 Pantoprazole Sodium [Protonix] 40 mg PO DAILY #30 tablet. 01/17/17 Amoxicillin - [Amoxicillin 500mg Capsule -] 500 mg PO BID #14 capsule 10/22/17 Anemia: Yes Asthma: No Cancer: No Cardiac Disorders: Yes (svt) CVA: No COPD: No CHF: No DVT: No Dementia: No Diabetes: No GI Disorders: No Disorders: No HTN: No Hypercholesterolemia: No Liver Disease: No Seizures: No Thyroid Disease: No - Surgical History Orthopedic Surgery: Yes (Left kknee arthroscopic sx) - Reproductive History (#): 1 Para: 1 Spontaneous : 0 - Immunization History Immunization Up to Date: Yes - Suicide/Smoking/Psychosocial Hx Smoking Status: No Smoking History: Never smoked Have you smoked in the past 12 months: No Number of Cigarettes Smoked Daily: 0 Information on smoking cessation initiated: No Hx Alcohol Use: No Drug/Substance Use Hx: No Substance Use Type: None Hx Substance Use Treatment: No Review of Systems - Review of Systems Comments:: 10/22/17 04:13 GENERAL/CONSTITUTIONAL: No fever or chills. No weakness. HEAD, EYES, EARS, NOSE AND THROAT: + PALM and tooth avulsion. No change in vision. No ear pain or discharge. No sore throat. CARDIOVASCULAR: No chest pain or shortness of breath RESPIRATORY: No cough, wheezing, or hemoptysis. GASTROINTESTINAL: No nausea, vomiting, diarrhea or constipation. GENITOURINARY: No dysuria, frequency, or change in urination. MUSCULOSKELETAL: No joint or muscle swelling or pain. No neck or back pain. SKIN: No rash NEUROLOGIC: + headache. No vertigo, loss of consciousness, or change in strength/sensation. ENDOCRINE: No increased thirst. No abnormal weight change HEMATOLOGIC/LYMPHATIC: No anemia, easy bleeding, or history of blood clots. ALLERGIC/IMMUNOLOGIC: No hives or skin allergy. \\ *Physical Exam - Vital Signs Last Vital Signs Temp Pulse Resp BP Pulse Ox 98.7 F 80 20 105/66 99 10/22/17 03:31 10/22/17 03:31 10/22/17 03:31 10/22/17 03:31 10/22/17 03:31 - Physical Exam Comments: 10/22/17 04:14 GENERAL: Awake, alert, and fully oriented, in no acute distress HEAD: No signs of trauma, normocephalic, atraumatic EYES: PERRLA, EOMI, sclera anicteric, conjunctiva clear ENT: + Upper left sided lip swelling, and left lateral incisor avulsion. +TTP at L sided superior orbit. Auricles normal inspection, hearing grossly normal, nares patent, oropharynx clear without exudates. Moist mucosa NECK: Normal ROM, supple, no lymphadenopathy, JVD, or masses LUNGS: No distress, speaks full sentences, clear to auscultation bilaterally HEART: Regular rate and rhythm, normal S1 and S2, no murmurs, rubs or gallops, peripheral pulses normal and equal bilaterally. EXTREMITIES : Normal inspection, Normal range of motion, no edema. No clubbing or cyanosis. NEUROLOGICAL: Cranial nerves II through XII grossly intact. Normal speech, normal gait, no focal sensorimotor deficits SKIN: Warm, Dry, normal turgor, no rashes or lesions noted ED Treatment Course - LABORATORY CBC & Chemistry Diagram: 10/22/17 05:22 10/22/17 05:22 Medical Decision Making - Medical Decision Making 10/22/17 04:14 27 yo F with h/o MVP who p/w with tooth avulsion s/p mechanical fall. VSS, AF. + Upper left sided lip swelling, and left lateral incisor avulsion. Will assess for fracture, hematoma, hemorrhage. C-SPINE NEG NEXUS criteria. Suspected intox. Ed Course: UA, UDS, Urine Preg Tylenol, Zofran, amoxicillin 10/22/17 04:25 Urine preg: + 10/22/17 05:19 UA: Neg UDS: + Opiates, +Cocaine Patient advised to f/u with Elementary Education Teacher Patient stable for d/c with return precautions. 10/22/17 05:25 Amoxicillin sent to pharmacy *DC/Admit/Observation/Transfer Diagnosis at time of Disposition: Tooth avulsion Qualifiers: Encounter type: initial encounter Qualified Code(s): S03.2XXA - Dislocation of tooth, initial encounter - Discharge Dispostion Disposition: HOME Condition at time of disposition: Stable Decision to Admit order: No - Prescriptions Prescriptions: Amoxicillin - [Amoxicillin 500mg Capsule -] 500 mg PO BID #14 capsule - Referrals Referrals: Gloria Ren MD [Primary Care Provider] - Vaughn Lora MD [Staff Physician] - Theresa Joy MD [Staff Physician] - - Patient Instructions Printed Discharge Instructions: DI for Fractured Tooth Additional Instructions: Please return to the emergency department with any new or worsening symptoms or concerns. Please follow up with your primary care physician within 72 hours. Please follow up with Elementary Education Teacher within 72 hours. Please follow up with dental within one week. Please take Amoxicillin two times a day for 7 days. - Post Discharge Activity - Attestations Physician Attestion: 10/22/17 05:27 I attest to the information provided in this note.
[2017-10-22] MEDS ORDERED: ACETAMINOPHEN 325 MG TABLET (FP) PO ONE (04:22)
[2017-10-22 04:31] LABS: URINE APPEARANCE CLEAR; URINE BILIRUBIN NEGATIVE (<2.0 mg/dL); URINE COLOR LTYELLOW; URINE GLUCOSE (UA) NEGATIVE (NEGATIVE); URINE KETONE NEGATIVE (NEGATIVE); URINE LEUK ESTERASE NEGATIVE (NEGATIVE); URINE NITRITE NEGATIVE (NEGATIVE); URINE PROTEIN NEGATIVE (NEGATIVE); URINE UROBILINOGEN NEGATIVE mg/dL (0.2-1.0)
[2017-10-22 04:36] LABS: EPI CELLS RARE /HPF (FEW); URINE BACTERIA FEW /hpf (NONE SEEN); URINE MUCUS RARE
[2017-10-22] MEDS ORDERED: ACETAMINOPHEN 325 MG TABLET (FP) ONE (04:43)
[2017-10-22 04:44] LABS: METHADONE, UR NEGATIVE ng/ml (CUTOFF=300); PHENCYCLIDINE,URINE NEGATIVE ng/ml (CUTOFF=25); URINE AMPHETAMINES NEGATIVE ng/ml (CUTOFF=500); URINE BARBITURATES NEGATIVE ng/ml (CUTOFF=200); URINE BENZODIAZEPINES NEGATIVE ng/ml (CUTOFF=200)
[2017-10-22 04:45] LABS: COCAINE, UR POSITIVE ng/ml (CUTOFF=300); OPIATES, URI POSITIVE ng/ml (CUTOFF=300)
--- NOTE | 2017-10-22 05:01 | PDOC ---
Attending Attestation - [facility] HPI: 10/22/17 05:16 The patient is a 27 year old female with a past medical history of MVP who presents to the ED for evaluation of tooth avulsion s/p fall. The patient reports landing on her face after she fell from getting out of the shower at 2am. She reports associated upper lip swelling and dull headache. The patient denies loss of consciousness, chest pain, abdominal pain, neck pain , changes to vision, lightheadedness, shortness of breath, fever, chills, nausea , vomiting, and bowel/urinary symptoms. Allergies: NKDA Social History: No reported alcohol, cigarette, or drug use. - Physicial Exam PE: General Appearance: Yes: Appropriately Dressed. No: Apparent Distress, Intoxicated HEENT: positive: (+)Swelling to the left side of the upper lip, with small laceration in the buccal mucosa. (+)tooth 9 broken. atraumatic, normocephalic, no contusions or ecchymosis to face other than the lip itself. EOMI, AMY, Normal ENT Inspection, Normal Voice, TMs Normal, Pharynx Normal. negative: Pale Conjunctivae, Photophobia, Scleral Icterus (R), Scleral Icterus (L) Neck: positive: Trachea midline, Normal Thyroid, Supple. negative: Tender, Rigid, Carotid bruit, Stridor, Lymphadenopathy (R), Lymphadenopathy (L), Thyromegaly Respiratory/Chest: positive: Lungs Clear, Normal Breath Sounds. negative: Chest Tender, Respiratory Distress, Accessory Muscle Use, Labored Respiration, RES, Crackles, Rales, Rhonchi, Stridor, Wheezing, Dullness Cardiovascular: positive: Regular Rhythm, Regular Rate, S1, S2. negative: Edema , JVD, Murmur, Bradycardia, Tachycardia Vascular Pulses: Dorsalis-Pedis (R): 2+, Doralis-Pedis (L): 2+ Gastrointestinal/Abdominal: positive: Normal Bowel Sounds, Flat, Soft. negative : Tender, Organomegaly, Pulsatile Mass, Increased Bowel Sounds, Decreased BS, Distended, Guarding, Rebound, Hernia, Hepatomegaly, Splenomegaly Lymphatic: negative: Adenopathy, Tenderness Musculoskeletal: positive: Normal Inspection. negative: CVA Tenderness, Decreased Range of Motion Extremity: positive: Normal Capillary Refill, Normal Inspection, Normal Range of Motion, Pelvis Stable. negative: Tender, Pedal Edema, Swelling, Erythema Integumentary: positive: Normal Color, Dry, Warm. negative: Cyanotic, Erythema , Jaundice, Rash Neurologic: positive: grease and tallow pumper II-XII NML intact, Fully Oriented, Alert, Normal Mood/ Affect, Motor Strength 5/5. negative: EOM Palsy, Facial Droop, Sensory Deficit <Alex Jiménez - Last Filed: 10/22/17 05:17> - Resident Resident Name: Santiago Ferraro - ED Attending Attestation I have performed the following: I have examined & evaluated the patient, The case was reviewed & discussed with the resident, I agree w/resident's findings & plan, Exceptions are as noted - Medical Decision Making 10/22/17 19:50 Pt treated and released <Amish Griffin - Last Filed: 10/22/17 19:50> Attestations - Attestations Documentation prepared by Alex Jiménez, acting as medical esthetician for Amish Griffin DO. <Alex Jiménez - Last Filed: 10/22/17 05:17>
[2017-10-22] MEDS ORDERED: AMOXICILLIN 500 MG CAPSULE (FP) PO ONE (05:09)
[2017-10-22] MEDS ORDERED: ONDANSETRON 4 MG/2 ML VIAL IVPB ONE (05:09)
[2017-10-22 05:38] LABS: HEMATOCRIT 30.6 % (32.4-45.2); HEMOGLOBIN 10.6 GM/dL (10.7-15.3); MCH 28.9 pg (25.7-33.7); MCHC 34.8 g/dl (32.0-36.0); MEAN CELL VOLUME 83.1 fl (80-96); MEAN PLT VOLUME 8.9 fl (7.5-11.1); PLATELET COUNT 170 K/MM3 (134-434); RBC 3.68 M/mm3 (3.60-5.2); RDW 12.7 % (11.6-15.6); WHITE BLOOD COUNT 5.2 K/mm3 (4.0-10.0)
[2017-10-22] MEDS ORDERED: ONDANSETRON 4 MG TABLET PO ONE (05:38)
[2017-10-22] MEDS ORDERED: AMOXICILLIN 500 MG CAPSULE (FP) ONE (05:39)
[2017-10-22] MEDS ORDERED: ONDANSETRON *ODT* 4 MG TABLET ONE (06:15)
[2017-10-22] MEDS ORDERED: ONDANSETRON 8 MG TABLET (FP) PO ONE (06:15)
[2017-10-22 06:25] LABS: ANION GAP 8 (8-16); BILIRUBIN,TOTAL 0.4 mg/dL (0.2-1.0); BLOOD UREA NITROGEN 8 mg/dL (7-18); CALCIUM 7.9 mg/dL (8.5-10.1); CHLORIDE 109 mmol/L (98-107); CO2 24 mmol/L (21-32); CREATININE 0.6 mg/dL (0.55-1.02); GLUCOSE,RANDOM 99 mg/dL (74-106); POTASSIUM 3.7 mmol/L (3.5-5.1); SGOT/AST 43 U/L (15-37); SGPT/ALT 30 U/L (12-78); SODIUM 141 mmol/L (136-145); TOT PROT 5.9 g/dl (6.4-8.2)
[2017-10-22 06:39] LABS: ALK PHOS 75 U/L (45-117)
[2017-10-22 07:34] VITALS: BP 122/72; PULSE 71; TEMP 98.2
== END 2017-10-22 07:20 | disposition home or self-care (01) ==
LOC: JER 03:10
DX: S03.2XXA Dislocation of tooth, initial encounter (principal); W18.2XXA Fall in (into) shower or empty bathtub, initial encounter; Y93.E1 Activity, personal bathing and showering; Y92.031 Bathroom in apartment as the place of occurrence of the external cause; Y99.8 Other external cause status
CPT/HCPCS: 36415; 80053; 80307; 81003; 81015; 84702; 84703; 85027; 99281-25

== ENCOUNTER 2018-02-27 18:52 | Emergency (ER) | payer OTHER ==
[2018-02-27 19:00] VITALS: BMI 37.9
--- NOTE | 2018-02-27 19:25 | PDOC ---
History of Present Illness - General History Source: Patient Exam Limitations: Intoxication - History of Present Illness Initial Comments: 02/27/18 20:02 The patient is a 27 year old , 5 months female with history of polysubstance abuse (daily IV cocaine, IV heroin use and benzos) who arrives to the ED via EMS s/p fall down 10 steps and hitting the back of her head. Patient also reports use of cocaine, heroin, and klonopin today and arrives to the ED somnolent. She does respond to questioning, but is confused. She does report severe pain to the back of her head and neck with associated blurred vision. Reports LOC at the time of the fall and is unsure of how long she was unconscious. Denies any seizures. She reports seeing her OB early on in but has not seen him since. Denies having any care and does not know when her due date is. Patient wasnt using up until a month ago, but the of her caused her to start using again. No further history can be obtained. Social Hx: Patient is homeless, has living daughter who is 5 years old and lives with patients mother. However, patient holds custody. DATA COLLECTION INTERVIEWER: Dr. Jones <Heather Brothers - Last Filed: 02/27/18 21:05> <Yaz Guerrero - Last Filed: 02/28/18 01:08> - General Chief Complaint: Substance Abuse Stated Complaint: SUBSTANCE ABUSE Time Seen by Provider: 02/27/18 19:04 Past History <Heather Brothers - Last Filed: 02/27/18 21:05> - Past Medical History Anemia: Yes Asthma: No Cancer: No Cardiac Disorders: Yes (svt) CVA: No COPD: No CHF: No DVT: No Dementia: No Diabetes: No GI Disorders: No Disorders: No HTN: No Hypercholesterolemia: No Liver Disease: No Seizures: No Thyroid Disease: No - Surgical History Orthopedic Surgery: Yes (Left kknee arthroscopic sx) - Reproductive History (#): 1 Para: 1 Spontaneous : 0 - Immunization History Immunization Up to Date: Yes - Suicide/Smoking/Psychosocial Hx Smoking Status: No Smoking History: Current every day smoker Have you smoked in the past 12 months: No Number of Cigarettes Smoked Daily: 0 Information on smoking cessation initiated: No Hx Alcohol Use: No Drug/Substance Use Hx: Yes (heroin) Substance Use Type: None Hx Substance Use Treatment: No <Yaz Guerrero - Last Filed: 02/28/18 01:08> - Past Medical History Allergies/Adverse Reactions: Allergies Allergy/AdvReac Type Severity Reaction Status Date / Time No Known Allergies Allergy Verified 10/22/17 03:31 Home Medications: Ambulatory Orders Nitrofurantoin Monohyd/M-Cryst [Macrobid -] 100 mg PO BID #14 capsule 02/28/18 Prenat 115/Iron Fum/Folic/Dss [ 19 Tablet] 1 each PO DAILY #30 tablet Review of Systems - Review of Systems Able to Perform ROS?: Yes Comments:: 02/27/18 20:02 GENERAL/CONSTITUTIONAL: No fever or chills. No weakness. HEAD, EYES, EARS, NOSE AND THROAT: No change in vision. No ear pain or discharge. No sore throat. CARDIOVASCULAR: No chest pain or shortness of breath. RESPIRATORY: No cough, wheezing, or hemoptysis. GASTROINTESTINAL: No nausea, vomiting, diarrhea or constipation. GENITOURINARY: No dysuria, frequency, or change in urination. MUSCULOSKELETAL: No joint or muscle swelling or pain. No neck or back pain. SKIN: No rash NEUROLOGIC: (+) headache, blurred vision. Loss of consciousness. No vertigo. ENDOCRINE: No increased thirst. No abnormal weight change. HEMATOLOGIC/LYMPHATIC: No anemia, easy bleeding, or history of blood clots. ALLERGIC/IMMUNOLOGIC: No hives or skin allergy. All Other Systems: Reviewed and Negative <Heather Brothers - Last Filed: 02/27/18 21:05> *Physical Exam - Vital Signs Last Vital Signs Temp Pulse Resp BP Pulse Ox 97.9 F 93 H 18 102/66 100 02/27/18 18:57 02/27/18 18:57 02/27/18 18:57 02/27/18 18:57 02/27/18 18:57 - Physical Exam Comments: 02/27/18 20:03 GENERAL: High, moving all extremities, altered, unable to participate in full exam. HEAD: No signs of trauma NECK: Normal ROM, midline c-spine tenderness throughout 4-7 and T1. No step off , no deformity on her back, no other signs of trauma. No lymphadenopathy, JVD, or masses LUNGS: Breath sounds equal, clear to auscultation bilaterally. No wheezes, and no crackles HEART: Regular rate and rhythm, normal S1 and S2, no murmurs, rubs or gallops ABDOMEN: Soft, gravid to umbilicus, nontender, normoactive bowel sounds. EXTREMITIES: Normal range of motion, no edema. No clubbing or cyanosis. No cords, erythema, or tenderness NEUROLOGICAL: Cranial nerves II through XII grossly intact. SKIN: Track lyons in bilateral upper extremities. Warm, Dry, normal turgor, no rashes Bedside ultrasound: IUP with heart rate of 152 bpm, baby moving well, placenta is away from cervix. <Heather Brothers - Last Filed: 02/27/18 21:05> - Vital Signs Last Vital Signs Temp Pulse Resp BP Pulse Ox 97.9 F 93 H 18 102/66 100 02/27/18 18:57 02/27/18 18:57 02/27/18 18:57 02/27/18 18:57 02/27/18 18:57 <Yaz Guerrero - Last Filed: 02/28/18 01:08> ED Treatment Course - LABORATORY CBC & Chemistry Diagram: 02/27/18 20:08 02/27/18 20:08 <Heather Brothers - Last Filed: 02/27/18 21:05> - LABORATORY CBC & Chemistry Diagram: 02/27/18 20:08 02/27/18 20:08 <Yaz Guerrero - Last Filed: 02/28/18 01:08> Medical Decision Making - Medical Decision Making 02/27/18 20:[address] to Dr[address] Garrett and case was discussed. <Heather Brothers - Last Filed: 02/27/18 21:05> - Critical Care Time Total Critical Care Time (minutes): 45 Critical Care Statement: The care of this patient involved high complexity decision making to prevent further life threatening deterioration of the patient 's condition and/or to evaluate & treat vital organ system(s) failure or risk of failure. - Medical Decision Making 02/27/18 20:18 27yo female who admits to ivda- heroin, cocaine, clonopin use today -states using x 1 month -pt is at 5m preg - unsure FDLMP, unsure delivery date, follows with Dr. Jones who she hasn't seen since the beginning of her preg -pt states she fell down 10 stairs today - c/o posterior head pain, blurred vision and neck pain -pt denies back pain -moving all extremities, no focal neuro deficits, but pt is under substance use -bedside ultrasound of the fetus shows an IUP with FHR of 152 -will send labs -discussed the case with Dr. Jones who agrees with MRI brain and c spine -will send ua and obtain obstetrics ultrasound for dates and age -if >20 weeks will need monitoring in labor and delivery once medically clear 02/27/18 22:40 ultrasound - IUP at 21weeks 4 days, fhr 135 MRI c spine negative for acute findings 02/27/18 22:41 MRI brain without acute findings of intracranial abnl 02/27/18 23:34 pt states she has tried to get into detox but because of her she has been denied discussed that CPS will need to be notified 02/27/18 23:48 pt giving ua discussed with labor and delivery who will perform monitoring pt tolerating po O+ on prior type and screen 02/28/18 00:44 case discussed with CPS - at this time unable to open a case because the child is not born. 02/28/18 00:55 drug screen +opiates and cocaine 02/28/18 00:55 uti on labs - will start macrobid 02/28/18 01:03 labor and delivery came to the ED to perform monitoring pt was cleared by labor and delivery in the ED 02/28/18 01:06 will send rx for abx and vitamins to [facility] <Yaz Guerrero - Last Filed: 02/28/18 01:08> *DC/Admit/Observation/Transfer - Attestations Scribe Attestion: 02/27/18 20:07 Documentation prepared by Heather Brothers, acting as medical biller for Yaz Guerrero DO. <Heather Brothers - Last Filed: 02/27/18 21:05> - Discharge Dispostion Decision to Admit order: No - Attestations Physician Attestion: 02/28/18 00:49 I, Dr. Yaz Guerrero DO, attest that this document has been prepared under my direction and personally reviewed by me in its entirety. I further attest, that it accurately reflects all work, treatment, procedures and medical decision -making performed by me. <Yaz Guerrero - Last Filed: 02/28/18 01:08> Diagnosis at time of Disposition: Fall, Closed head injury, Second trimester , UTI (urinary tract infection) - Discharge Dispostion Disposition: HOME Condition at time of disposition: Stable - Prescriptions Prescriptions: Nitrofurantoin Monohyd/M-Cryst [Macrobid -] 100 mg PO BID #14 capsule Prenat 115/Iron Fum/Folic/Dss [ 19 Tablet] 1 each PO DAILY #30 tablet - Referrals Referrals: Gloria Ren MD [Primary Care Provider] - James Jones MD [Staff Physician] - - Patient Instructions Printed Discharge Instructions: Managing Symptoms of , How to Prevent Falls, DI for Closed Head Injury Additional Instructions: Please follow up with your DATA COLLECTION INTERVIEWER. Please take a vitamin daily. Please stop using illicit substances. Please call the following substance abuse hotlines- [employer]: [phone] [facility] Addiction Hotline: 4-687-7IEGRVA National Substance Abuse Hotline: Please take all antibiotics as prescribed. Please return to the ED with any further concerns or complaints.
[2018-02-27] MEDS ORDERED: SODIUM CHLORIDE 0.9% 1000 ML INFUS.BAG IV ONE (19:48)
[2018-02-27 20:17] LABS: BASO % 0.4 % (0-2.0); EOS % 0.6 % (0-4.5); HEMATOCRIT 27.2 % (32.4-45.2); HEMOGLOBIN 9.5 GM/dL (10.7-15.3); LYMPH % 16.3 % (8-40); MCH 28.6 pg (25.7-33.7); MCHC 34.9 g/dl (32.0-36.0); MEAN CELL VOLUME 82.1 fl (80-96); MEAN PLT VOLUME 8.7 fl (7.5-11.1); NEUT % 69.7 % (42.8-82.8); PLATELET COUNT 230 K/MM3 (134-434); RBC 3.32 M/mm3 (3.60-5.2); RDW 14.1 % (11.6-15.6); WHITE BLOOD COUNT 6.5 K/mm3 (4.0-10.0)
[2018-02-27 20:30] LABS: INR 0.96 (0.83-1.09); PROTHROMBIN TIME (PATIENT) 11.3 SEC (9.7-13.0)
[2018-02-27 20:33] LABS: ACTIVATED PTT 28.4 SECONDS (25.2-36.5)
[2018-02-27 20:59] LABS: ALBUMIN 2.4 g/dl (3.4-5.0); ALK PHOS 80 U/L (45-117); ANION GAP 10 MMOL/L (8-16); BILIRUBIN,TOTAL 0.3 mg/dL (0.2-1); BLOOD UREA NITROGEN 12 mg/dL (7-18); CALCIUM 8.2 mg/dL (8.5-10.1); CHLORIDE 104 mmol/L (98-107); CO2 23 mmol/L (21-32); CREATININE 0.6 mg/dL (0.55-1.3); GLUCOSE,RANDOM 70 mg/dL (74-106); POTASSIUM 3.7 mmol/L (3.5-5.1); SGOT/AST 16 U/L (15-37); SGPT/ALT 18 U/L (13-61); SODIUM 137 mmol/L (136-145)
[2018-02-27] MEDS ORDERED: ACETAMINOPHEN 325 MG TABLET (FP) PO ONE (22:49)
[2018-02-27] MEDS ORDERED: ACETAMINOPHEN 325 MG TABLET (FP) ONE (22:53)
[2018-02-27 23:48] VITALS: BP 99/62; PULSE 108; TEMP 99.8
[2018-02-28 00:36] LABS: URINE APPEARANCE CLEAR; URINE BILIRUBIN NEGATIVE (<2.0 mg/dL); URINE COLOR STRAW; URINE GLUCOSE (UA) NEGATIVE (NEGATIVE); URINE KETONE NEGATIVE (NEGATIVE); URINE LEUK ESTERASE 1+ (NEGATIVE); URINE NITRITE NEGATIVE (NEGATIVE); URINE PROTEIN NEGATIVE (NEGATIVE); URINE UROBILINOGEN NEGATIVE mg/dL (0.2-1.0)
[2018-02-28 00:43] LABS: EPI CELLS RARE /HPF (FEW)
[2018-02-28 00:54] LABS: METHADONE, UR NEGATIVE ng/ml (CUTOFF=300); PHENCYCLIDINE,URINE NEGATIVE ng/ml (CUTOFF=25); URINE AMPHETAMINES NEGATIVE ng/ml (CUTOFF=500); URINE BARBITURATES NEGATIVE ng/ml (CUTOFF=200); URINE BENZODIAZEPINES NEGATIVE ng/ml (CUTOFF=200)
[2018-02-28 00:55] LABS: COCAINE, UR POSITIVE ng/ml (CUTOFF=300)
[2018-02-28 00:56] LABS: OPIATES, URI POSITIVE ng/ml (CUTOFF=300)
[2018-02-28] MEDS ORDERED: NITROFURANTOIN MACROCRYSTAL 50 MG CAPSULE (FP) PO SCH (01:00)
[2018-02-28] MEDS ORDERED: ACETAMINOPHEN 325 MG TABLET (FP) ONE (01:08)
[2018-02-28] MEDS ORDERED: NITROFURANTOIN MACROCRYSTAL 50 MG CAPSULE (FP) ONE (01:09)
== END 2018-02-28 01:20 | disposition home or self-care (01) ==
LOC: SUPCPDRO 18:52 → JER 18:52
PROC: BY4CZZZ Ultrasonography of Second Trimester, Single Fetus (ICD-10-PCS; principal; 2018-02-27)
DX: S06.899A Other specified intracranial injury with loss of consciousness of unspecified duration, initial encounter (principal); W10.8XXA Fall (on) (from) other stairs and steps, initial encounter; Y93.89 Activity, other specified; Y92.89 Other specified places as the place of occurrence of the external cause; Y99.8 Other external cause status; O99.322 Drug use complicating pregnancy, second trimester; F14.10 Cocaine abuse, uncomplicated; F11.10 Opioid abuse, uncomplicated; F13.10 Sedative, hypnotic or anxiolytic abuse, uncomplicated; Z3A.21 21 weeks gestation of pregnancy
CPT/HCPCS: 36415; 70551-TC; 72141-TC; 76801-TC; 76815; 80053; 80307; 81003; 81015; 84702; 85025; 85610; 85730; 99282-25; J7030

== ENCOUNTER 2018-08-19 01:15 | Emergency (ER) | payer OTHER ==
[2018-08-19 01:54] VITALS: BP 106/67; PULSE 102; TEMP 99.2; BMI 21.1
--- NOTE | 2018-08-19 01:57 | PDOC ---
Attending Attestation - Resident Resident Name: Ariel Mendes - ED Attending Attestation I have performed the following: I have examined & evaluated the patient, The case was reviewed & discussed with the resident, I agree w/resident's findings & plan - HPI HPI: 08/19/18 06:16 27-year-old female with history of IV drug abuse sent for evaluation of chills and diffuse body aches. Patient was seeking detox. - Physicial Exam PE: 08/19/18 06:19 Agree with resident's exam - Medical Decision Making 08/19/18 06:19 27-year-old female with body aches and history of opioid abuse ED evaluation reveals no significant abnormality Patient's symptoms likely due to opioid withdrawal Ativan 0.5 mg given IV Plan for discharge back to detox facility.
[2018-08-19] MEDS ORDERED: ACETAMINOPHEN 1000 MG/100 ML VIAL (NON FORMULARY) IVPB ONE (02:23)
[2018-08-19] MEDS ORDERED: SODIUM CHLORIDE 1,000 ML IV STA (02:23)
[2018-08-19] MEDS ORDERED: ONDANSETRON 4 MG/2 ML VIAL IVPUSH ONE (02:25)
[2018-08-19] MEDS ORDERED: FAMOTIDINE 20 MG/50 ML IVPB 20 MG/50 ML MG IVPB ONE ×2 (02:25→02:51)
[2018-08-19] MEDS ORDERED: MAG HYDROX/AL HYDROX/SIMETH 30 ML UNIT-DOSE CUP PO ONE (02:25)
--- NOTE | 2018-08-19 02:35 | PDOC ---
History of Present Illness - General Chief Complaint: SIRS, Suspected/Possible Stated Complaint: FEVER,PAIN Time Seen by Provider: 08/19/18 01:57 History Source: Patient Exam Limitations: No Limitations - History of Present Illness Initial Comments: 27 F yo with a hx of heroin abuse (last use 1.5 days ago) presents to the emergency department after failed admission to detox due to fevers, chills, and diffuse body aches for 1 day. Per the patient, she stopped using heroin because "I am tired of this lifestyle". The patient denies SI, HI, and ideation of self harm. The patient states she has had increasingly worsening acute on chronic left knee pain for 1 week. She denies injecting in her left knee. Denies the following: chest pain, SOB, dysuria, hematuria, diarrhea, and hematochezia. Denies vaginal bleeding and discharge. Last menstrual period was 05/2018. She endorses nausea, vomiting (4+ per day NBNB), and abdominal pain (epigastric). Shx: Left knee repair Allergies: NKDA Past History - Past Medical History Allergies/Adverse Reactions: Allergies Allergy/AdvReac Type Severity Reaction Status Date / Time No Known Allergies Allergy Verified 08/18/18 23:55 Home Medications: Ambulatory Orders Morphine Sulfate 30 mg PO Q12H 08/18/18 Oxycodone HCl/Acetaminophen [Percocet 10-325 mg Tablet] 1 each PO Q6H 08/18/18 Anemia: Yes Asthma: No Cancer: No Cardiac Disorders: Yes (svt) CVA: No COPD: No CHF: No DVT: No Dementia: No Diabetes: No GI Disorders: No Disorders: No HTN: No Hypercholesterolemia: No Liver Disease: No Seizures: No Thyroid Disease: No - Surgical History Orthopedic Surgery: Yes (Left kknee arthroscopic sx) - Reproductive History (#): 1 Para: 1 Spontaneous : 0 - Immunization History Immunization Up to Date: Yes - Suicide/Smoking/Psychosocial Hx Smoking Status: No Smoking History: Never smoked Have you smoked in the past 12 months: No Number of Cigarettes Smoked Daily: 0 Hx Alcohol Use: No Drug/Substance Use Hx: Yes (heroin) Substance Use Type: None Hx Substance Use Treatment: No Review of Systems - Review of Systems Able to Perform ROS?: Yes Is the patient limited Sami proficient: No Constitutional: Yes: Chills, Fever. No: Diaphoresis, Weakness HEENTM: No: Eye Pain, Recent change in vision, Ear Pain, Nose Pain, Throat Pain , Mouth Pain Respiratory: No: Cough, Shortness of Breath, Hemoptysis Cardiac (ROS): No: Chest Pain, Lightheadedness, Palpitations, Syncope, Chest Tightness ABD/GI: Yes: Nausea, Poor Appetite, Poor Fluid Intake, Vomiting, Abdominal cramping. No: Constipated, Diarrhea, Rectal Bleeding, Tarry Stools : No: Burning, Dysuria, Hematuria, Incontinence Musculoskeletal: Yes: Joint Pain. No: Back Pain, Neck Pain Integumentary: No: Bruising, Erythema, Rash Neurological: No: Headache, Numbness, Tremors Psychiatric: No: Change in Appetite Endocrine: No: Unexplained Weight Gain Hematologic/Lymphatic: No: Anemia *Physical Exam - Vital Signs Last Vital Signs Temp Pulse Resp BP Pulse Ox 99.2 F 102 H 18 106/67 100 08/19/18 01:52 08/19/18 01:52 08/19/18 01:52 08/19/18 01:52 08/19/18 01:52 - Physical Exam General Appearance: Yes: Nourished, Appropriately Dressed, Thin. No: Apparent Distress, Intoxicated HEENT: positive: EOMI, AMY, Normal Voice, Symmetrical, Pharynx Normal, Hearing Grossly Normal. negative: Pale Conjunctivae, Scleral Icterus (R), Scleral Icterus (L), Muffled/Hoarse voice, Pharyngeal Erythema, Tonsillar Exudate, Tonsillar Erythema, Sinus Tenderness, Excessive drooling Neck: positive: Supple. negative: Tender, Trachea midline, Lymphadenopathy (R) , Lymphadenopathy (L), Tender lateral, Tender midline Respiratory/Chest: positive: Lungs Clear, Normal Breath Sounds. negative: Chest Tender, Respiratory Distress, Accessory Muscle Use, Rhonchi, Stridor, Wheezing Cardiovascular: positive: Regular Rhythm, Regular Rate, S1, S2. negative: Systolic Murmur Gastrointestinal/Abdominal: positive: Normal Bowel Sounds, Tender (epigastric region), Flat, Soft. negative: Distended, Guarding, Rebound Lymphatic: negative: Adenopathy Musculoskeletal: positive: Normal Inspection. negative: CVA Tenderness, Vertebral Tenderness Extremity: positive: Normal Capillary Refill, Normal Inspection, Normal Range of Motion, Other (no joint swelling or effusion in the left knee.). negative: Tender, Swelling, Calf Tenderness Integumentary: positive: Normal Color, Dry, Warm. negative: Rash, Swelling, Ecchymosis Neurologic: positive: senior business architect II-XII NML intact, Fully Oriented, Alert, Normal Mood/ Affect, Normal Response, Motor Strength 5/5. negative: EOM Palsy, Facial Droop , Numbness, Sensory Deficit Heart Score/ECG Review - ECG Intrepretation Comment:: ventricular rate: 88 bpm, OH is 130 ms, QTc is 479 ms, QRS is [address] elevations. ED Treatment Course - LABORATORY CBC & Chemistry Diagram: 08/19/18 03:35 08/19/18 03:35 - RADIOLOGY Radiology Studies Ordered: Category Date Time Status CHEST PA & LAT [RAD] Stat Radiology 08/19/18 02:29 Ordered Medical Decision Making - Medical Decision Making 27 F yo with a hx of heroin abuse (last use 1.5 days ago) presents to the emergency department after failed admission to detox due to fevers, chills, and diffuse body aches for 1 day. Initial vitals; Initial Vital Signs Temp Pulse Resp BP Pulse Ox 99.2 F 102 H 18 106/67 100 08/19/18 01:52 08/19/18 01:52 08/19/18 01:52 08/19/18 01:52 08/19/18 01:52 Work up: ddx: epigastric pain: ectopic vs gastritis vs pancreatitis vs GERD. I dont suspect septic knee joint given the following: no fevers, no swelling/effusions present in the knee, no tenderness to palpation, full ROM passive and active on left knee. Laboratory Tests 08/19/18 08/19/18 08/19/18 03:35 03:35 03:35 WBC 6.8 RBC 4.68 Hgb 11.4 Hct 35.9 D MCV 76.8 L MCH 24.4 L D MCHC 31.8 L RDW 16.4 H Plt Count 284 D MPV 8.2 Absolute Neuts (auto) 4.7 Neutrophils % 69.1 Lymphocytes % 20.6 D Monocytes % 7.1 Eosinophils % 2.6 D Basophils % 0.6 Nucleated RBC % 0 ESR 23 H Sodium 136 Potassium 4.1 Chloride 103 Carbon Dioxide 26 Anion Gap 7 L BUN 7 Creatinine 0.6 Est GFR (CKD-EPI)AfAm 142.76 Est GFR (CKD-EPI)NonAf 123.17 Random Glucose 72 L Lactic Acid Calcium 9.8 Total Bilirubin 0.3 AST 17 ALT 19 Alkaline Phosphatase 67 Creatine Kinase 53 Troponin I < 0.02 C-Reactive Protein 0.8 H Total Protein 8.0 Albumin 3.9 Lipase 73 Serum , Qual Urine Color Urine Appearance Urine pH Ur Specific [place] Urine Protein Urine Glucose (UA) Urine Ketones Urine Blood Urine Nitrite Urine Bilirubin Urine Urobilinogen Ur Leukocyte Esterase Urine HCG, Qual 08/19/18 08/19/18 08/19/18 03:58 04:19 04:50 WBC RBC Hgb Hct MCV MCH MCHC RDW Plt Count MPV Absolute Neuts (auto) Neutrophils % Lymphocytes % Monocytes % Eosinophils % Basophils % Nucleated RBC % ESR Sodium Potassium Chloride Carbon Dioxide Anion Gap BUN Creatinine Est GFR (CKD-EPI)AfAm Est GFR (CKD-EPI)NonAf Random Glucose Lactic Acid 0.6 Calcium Total Bilirubin AST ALT Alkaline Phosphatase Creatine Kinase Troponin I C-Reactive Protein Total Protein Albumin Lipase Serum , Qual Negative Urine Color Yellow Urine Appearance Clear Urine pH 7.5 D Ur Specific [place] 1.005 L Urine Protein Negative Urine Glucose (UA) Negative Urine Ketones Negative Urine Blood Negative Urine Nitrite Negative Urine Bilirubin Negative Urine Urobilinogen 0.2 Ur Leukocyte Esterase Negative Urine HCG, Qual Negative CRP and ESR slightly elevated. trop negative. 08/19/18 06:07 Delay in lactic acid reporting. Lactic acid sent 2 hours ago and lab stated that the machine didnt run. Lactic acid is negative. 08/19/18 06:28 Patient was given food for PO challenge and failed challenge. The patient reports 9/10 diffuse abdominal pain after awakening from sleep s/p 0/5 mg of ativan which was given for opioid withdrawal (per the patient, this is the longest she has been away from opiates). Will get an abdomen and pelvis CT to elucidate pathology 08/19/18 07:07 I became aware that the patient potentially eloped at approximately 6:35am-6: 45am. The ED was searched, including the bathrooms and waiting room. The cell phone on record was called for the patient. No answer. The patient's next of kin was contacted, again no answer. The patient's room shows EKG leads off with her gown on the bed. Her personal belongings are not present. A call was placed to [employer] to report that the patient eloped with an IV in place. Specifically it was a 20 gauge in her right arm. Shield number for receiving officer is the followin. Officer was Ro. Dispo: Eloped. *DC/Admit/Observation/Transfer Diagnosis at time of Disposition: Knee pain Qualifiers: Chronicity: unspecified Laterality: unspecified laterality Qualified Code(s): M25.569 - Pain in unspecified knee Abdominal pain Qualifiers: Abdominal location: unspecified location Qualified Code(s): R10.9 - Unspecified abdominal pain - Discharge Dispostion Disposition: ELOPED - Referrals Referrals: Gloria Ren MD [Primary Care Provider] - - Patient Instructions - Post Discharge Activity
[2018-08-19] MEDS ORDERED: ACETAMINOPHEN INJECTION 100 ML IVPB ONE (02:50)
[2018-08-19] MEDS ORDERED: ONDANSETRON 4 MG/2 ML VIAL ONE (02:51)
[2018-08-19] MEDS ORDERED: MAG HYDROX/AL HYDROX/SIMETH 30 ML UNIT-DOSE CUP ONE (02:51)
[2018-08-19 03:53] LABS: BASO % 0.6 % (0-2.0); EOS % 2.6 % (0-4.5); HEMATOCRIT 35.9 % (32.4-45.2); HEMOGLOBIN 11.4 GM/dL (10.7-15.3); LYMPH % 20.6 % (8-40); MCH 24.4 pg (25.7-33.7); MCHC 31.8 g/dl (32.0-36.0); MEAN CELL VOLUME 76.8 fl (80-96); MEAN PLT VOLUME 8.2 fl (7.5-11.1); MONO % 7.1 % (3.8-10.2); NEUT % 69.1 % (42.8-82.8); PLATELET COUNT 284 K/MM3 (134-434); RBC 4.68 M/mm3 (3.60-5.2); RDW 16.4 % (11.6-15.6); WHITE BLOOD COUNT 6.8 K/mm3 (4.0-10.0)
[2018-08-19 04:20] LABS: ALBUMIN 3.9 g/dl (3.4-5.0); BILIRUBIN,TOTAL 0.3 mg/dL (0.2-1); CALCIUM 9.8 mg/dL (8.5-10.1); CREATININE 0.6 mg/dL (0.55-1.3); POTASSIUM 4.1 mmol/L (3.5-5.1)
[2018-08-19 04:21] LABS: LIPASE 73 U/L (73-393)
[2018-08-19 05:25] LABS: PH,URINE 7.5 (5.0-8.0); URINE APPEARANCE CLEAR; URINE BILIRUBIN NEGATIVE (NEGATIVE); URINE COLOR YELLOW; URINE GLUCOSE (UA) NEGATIVE (NEGATIVE); URINE KETONE NEGATIVE (NEGATIVE); URINE LEUK ESTERASE NEGATIVE (NEGATIVE); URINE NITRITE NEGATIVE (NEGATIVE); URINE PROTEIN NEGATIVE (NEGATIVE); URINE UROBILINOGEN 0.2 mg/dL (0.2-1.0)
[2018-08-19] MEDS ORDERED: LORazepam 2 MG/ML SDV VIAL ONE (05:32)
[2018-08-19 06:33] LABS: ERYTHROCYTE SEDIMENTATION RATE 23 mm/hr (0-20)
[2018-08-19 06:44] LABS: HCG,QUALITATIVE URINE Negative
--- NOTE | 2018-08-19 14:25 | EKG ---
Test Reason : Blood Pressure : / mmHG Vent. Rate : 088 BPM Atrial Rate : 088 BPM P-R Int : 130 ms QRS Dur : 080 ms QT Int : 396 ms P-R-T Axes : 048 048 031 degrees QTc Int : 479 ms NORMAL SINUS RHYTHM NORMAL ECG WHEN COMPARED WITH ECG OF 20-MAY-2016 09:00, NONSPECIFIC T WAVE ABNORMALITY NOW EVIDENT IN ANTERIOR LEADS Confirmed by ELLEN JORDAN MD ([id number]) on 08/19/2018 2:25:22 PM Referred By: Confirmed By:ELLEN JORDAN MD
== END 2018-08-19 07:00 | disposition left against medical advice (07) ==
LOC: JER 01:15
PROC: 3E0337Z Introduction of Electrolytic and Water Balance Substance into Peripheral Vein, Percutaneous Approach (ICD-10-PCS; principal; 2018-08-19)
PROC: 3E033GC Introduction of Other Therapeutic Substance into Peripheral Vein, Percutaneous Approach (ICD-10-PCS; 2018-08-19)
PROC: 3E033GC Introduction of Other Therapeutic Substance into Peripheral Vein, Percutaneous Approach (ICD-10-PCS; 2018-08-19)
PROC: 3E033NZ Introduction of Analgesics, Hypnotics, Sedatives into Peripheral Vein, Percutaneous Approach (ICD-10-PCS; 2018-08-19)
PROC: 3E033NZ Introduction of Analgesics, Hypnotics, Sedatives into Peripheral Vein, Percutaneous Approach (ICD-10-PCS; 2018-08-19)
DX: R10.9 Unspecified abdominal pain (principal); M25.569 Pain in unspecified knee; F11.10 Opioid abuse, uncomplicated
CPT/HCPCS: 36415; 71046-TC-FY; 80053; 81003; 82550; 83605; 83690; 84484; 84703; 85025; 85651; 86140; 87040; 87086; 93005; 93010; 99282-25; J0131; J7030